=== PATIENT | female | born 1965 | race Caucasian/White ===

== ENCOUNTER → 2017-10-02 10:30 | Outpatient (CLI) | payer BC, SELFPAY ==
[2017-10-02 12:21] LABS: Absolute Lymphocyte Count 1.49 X10^3/ul (0.83-4.51); Absolute Neutrophil Count 3.5 X10^3/uL (2.0-7.7); Basophil# 0.02 X10^3/uL; Basophil% 0.3 % (0-1); Eosinophils% 1.7 % (0-5); Hematocrit 37.4 % (37-47); Hemoglobin 11.8 g/dl (12.0-15.0); Lymphocyte # 1.49 X10^3/ul (4.0); Lymphocyte % 24.8 % (19-41); Mean Corp Hgb Conc 31.6 g/gl (32-36); Mean Corpuscular Hgb 25.7 pg (27.0-32.0); Mean Corpuscular Volume 81.3 fL (81-99); Mean Platelet Vol. 10.4 fl (6.2-12.0); Monocyte# 0.88 X10^3/uL; Monocyte% 14.6 % (0-10); Neutrophil # 3.51 X10^3/uL (2.7-7.7); Neutrophil % 58.4 % (47-70); Platelet Count 275 K/mm3 (150-450); RBC Distribution Width CV 14.7 % (11.6-14.6); RBC Distribution Width SD 43.5 fl (35.1-43.9)
[2017-10-02 12:35] LABS: AST(SGOT) 18 U/L (15-37); Alanine Aminotransfer ALT/SGPT 21 U/L (13-56); Alkaline Phosphatase 59 U/L (45-117); Anion Gap 5 (5-15); BUN 10 mg/dL (7-18); BUN/Creat Ratio 13.4 RATIO (10-20); Calcium,Total 8.9 mg/dL (8.5-10.1); Chloride 104 mmol/L (98-107); Creatinine, Serum 0.74 mg/dL (0.55-1.02); EST Glomerular Filtration Rate 88 mL/min (>60); Est Glom Filt Rate - Afr Amer 106 mL/min (>60); Globulin 3.9 g/dL (2.2-4.2); Glucose 89 mg/dL (74-106); Iron 21 ug/dL (50-170); POSITIVE COUNT NO; POSITIVE DIFFERENTIAL NO; POSITIVE MORPHOLOGY NO; Potassium 4.1 mmol/L (3.5-5.1); Protein, Total 7.9 g/dL (6.4-8.2); Sodium Level 138 mmol/L (136-145)
[2017-10-03 08:20] LABS: Vitamin B12 933 pg/mL (211-911); Vitamin D,25 Hydroxy 24.2 ng/mL (29.95-100.01)
== END ==
PROVIDERS: Family Provider Family Medicine; PCP Family Medicine; Visit Provider Urology
DX: N92.0 Excessive and frequent menstruation with regular cycle (principal); I49.9 Cardiac arrhythmia, unspecified
CPT/HCPCS: 36415; 80053; 82306; 82607; 83540; 85025

== ENCOUNTER → 2017-11-11 10:08 | Outpatient (CLI) | payer BC, SELFPAY ==
[2017-11-11 12:11] LABS: Absolute Lymphocyte Count 1.24 X10^3/ul (0.83-4.51); Absolute Neutrophil Count 2.3 X10^3/uL (2.0-7.7); Basophil# 0.01 X10^3/uL; Basophil% 0.2 % (0-1); Eosinophil# 0.12 X10^3/uL; Eosinophils% 2.8 % (0-5); Hematocrit 41.3 % (37-47); Hemoglobin 12.7 g/dl (12.0-15.0); Lymphocyte # 1.24 X10^3/ul (4.0); Lymphocyte % 28.9 % (19-41); Mean Corp Hgb Conc 30.8 g/gl (32-36); Mean Corpuscular Hgb 26.6 pg (27.0-32.0); Mean Corpuscular Volume 86.6 fL (81-99); Mean Platelet Vol. 10.2 fl (6.2-12.0); Neutrophil # 2.32 X10^3/uL (2.7-7.7); Neutrophil % 54.1 % (47-70); POSITIVE COUNT NO; POSITIVE DIFFERENTIAL NO; POSITIVE MORPHOLOGY NO; Platelet Count 224 K/mm3 (150-450); RBC Distribution Width CV 18.6 % (11.6-14.6); RBC Distribution Width SD 59.2 fl (35.1-43.9); Red Blood Count 4.77 M/mm3 (4.2-5.4); White Blood Count 4.3 K/mm3 (4.4-11.0)
[2017-11-11 12:31] LABS: Cholesterol 176 mg/dL (200); High Density Lipoprotein 60 mg/dL; Triglycerides 94 mg/dL; Very Low Density Lipoprotein 19 mg/dL (5-40)
== END ==
PROVIDERS: Family Provider Family Medicine; PCP Family Medicine; Visit Provider Family Medicine
DX: Z00.00 Encounter for general adult medical examination without abnormal findings (principal); D50.9 Iron deficiency anemia, unspecified
CPT/HCPCS: 36415; 80061; 85025

== ENCOUNTER → 2017-11-12 13:50 | Outpatient (CLI) | payer BC, SELFPAY | PROVIDERS: Family Provider Family Medicine; PCP Family Medicine; Visit Provider Family Medicine | DX: Z12.31 Encounter for screening mammogram for malignant neoplasm of breast (principal) | CPT/HCPCS: 77063; 77067 ==

== ENCOUNTER → 2018-06-22 | Outpatient (CLI) | payer BC, SELFPAY ==
--- NOTE | 2018-06-22 15:42 | CT_ITS ---
STUDY: CT ABDOMEN AND PELVIS WITH CONTRAST REASON FOR EXAM: Female, 52 years old. Lower abdominal pain RADIATION DOSAGE (If Supplied By Facility): CTDIvol = ( 10.93 ) mGy, DLP = ( 564.59 ) mGycm TECHNIQUE: Transaxial images were obtained from the dome of the diaphragm to the symphysis pubis without oral contrast. 100 IV/Oral Isovue 300 was administered. Sagittal and coronal images were reconstructed. Individualized dose optimization techniques were used for this CT. COMPARISON: None. FINDINGS: The visualized lung bases are unremarkable. The visualized portions of the heart are within normal limits. Normal liver. Normal gallbladder and extrahepatic biliary system. Normal spleen. Normal pancreas. Normal bilateral adrenal glands. There is no evidence for right renal obstruction however there is a parapelvic cyst noted. Normal left kidney. Normal visualized stomach. Normal small intestine. There are diverticular changes in the distal descending and sigmoid colon with focal segmental thickening of the bowel wall and stranding in the fat consistent with acute diverticulitis. There is no peridiverticular abscess. No evidence for acute appendicitis. Normal abdominal aorta. Normal inferior vena cava. Normal retroperitoneum. Normal urinary bladder. There are small bilateral ovarian cysts. There is a small amount of fluid within the cul-de-sac. Normal abdominal wall. Normal osseous structures. CT/Abdomen/Pelvis WITH Contrast IMPRESSION: Findings most consistent with acute diverticulitis of the distal descending colon with without evidence for peridiverticular abscess. Small bilateral ovarian cysts and a small amount of free fluid in cul-de-sac. Electronically Signed: Rojas Mcelroy MD at 18:29 EDT , Service support ,
== END | disposition home or self-care (01) ==
LOC: CT 15:41
PROVIDERS: Family Provider Family Medicine; PCP Family Medicine; Referring Provider Family Medicine; Visit Provider Family Medicine
DX: R10.9 Unspecified abdominal pain (principal)
CPT/HCPCS: 74177; Q9967

== ENCOUNTER → 2018-11-18 | Outpatient (CLI) | payer OTHER, SELFPAY ==
--- NOTE | 2018-11-18 12:04 | BI_ITS ---
MAMMOGRAPHY - BILATERAL SCREENING REASON FOR EXAM: Female, 53 years old. Routine annual screening examination. PERTINENT HISTORY: Mother with breast cancer. TECHNIQUE: Digital bilateral breast alex (3D mammographic acquisition) in the CC and MLO projections. 2-D mediolateral oblique (MLO) and craniocaudad (CC) views of both breasts were obtained. CAD: Full Field Digital Mammography with Computer Added Detection was performed. COMPARISON: Comparison is made with prior study dated November 12, 2017 and November 14, 2015. FINDINGS: Breast Composition: The breasts are heterogeneously dense, which may obscure small masses. There are no dominant masses or suspicious calcifications. Stable small bilateral axillary lymph nodes. No other significant abnormalities are identified. There has been no significant change since the prior study. BI/SCREEN MAMM (CAD) W/ALEX BILAT IMPRESSION: Stable bilateral screening mammogram. Yearly follow-up mammogram recommended. (A) ASSESSMENT CATEGORY: BIRADS Category 2: Benign. A letter regarding these results will be sent to the patient by the facility within 30 days. Approximately 10% of breast cancers are not detected by mammography. A normal mammogram should not delay biopsy of a clinically suspicious abnormality. [id number] Electronically Signed: Arya Laura, at 13:27 EDT , Service support ,
== END | disposition home or self-care (01) ==
LOC: OPBI 12:02
PROVIDERS: Family Provider Family Medicine; PCP Family Medicine; Referring Provider Family Medicine; Visit Provider Obstetrics & Gynecology
DX: Z12.31 Encounter for screening mammogram for malignant neoplasm of breast (principal)
CPT/HCPCS: 77063; 77067

== ENCOUNTER → 2018-12-07 | Outpatient (CLI) | payer OTHER, SELFPAY ==
[2018-12-07 13:58] LABS: Absolute Lymphocyte Count 1.18 X10^3/uL (0.83-4.51); Absolute Neutrophil Count 4.2 X10^3/uL (2.0-7.7); Basophil# 0.02 X10^3/uL; Basophil% 0.3 % (0-1); Eosinophil# 0.08 X10^3/uL; Eosinophils% 1.3 % (0-5); Hematocrit 42.2 % (37-47); Hemoglobin 13.6 g/dL (12.0-15.0); Lymphocyte # 1.18 X10^3/ul (4.0); Lymphocyte % 19.6 % (19-41); Mean Corp Hgb Conc 32.2 g/dL (32-36); Mean Corpuscular Hgb 28.5 pg (27.0-32.0); Mean Corpuscular Volume 88.5 fL (81-99); Mean Platelet Vol. 10.7 fl (6.2-12.0); Monocyte# 0.56 X10^3/uL; Monocyte% 9.3 % (0-10); NRBC Flagged by Analyzer 0 % (0-5); Neutrophil # 4.17 X10^3/uL (2.7-7.7); Neutrophil % 69.2 % (47-70); Platelet Count 276 K/mm3 (150-450); RBC Distribution Width CV 13.3 % (11.6-14.6); RBC Distribution Width SD 43.2 fl (35.1-43.9); Red Blood Count 4.77 M/mm3 (4.2-5.4)
[2018-12-07 14:17] LABS: Anion Gap 9 (5-15); BUN 10 mg/dL (7-18); BUN/Creat Ratio 13.8 RATIO (10-20); Calcium,Total 8.8 mg/dL (8.5-10.1); Chloride 105 mmol/L (98-107); Creatinine, Serum 0.72 mg/dL (0.55-1.02); EST Glomerular Filtration Rate 90 mL/min (>60); Est Glom Filt Rate - Afr Amer 109 mL/min (>60); Glucose 92 mg/dL (74-106); Potassium 3.7 mmol/L (3.5-5.1); Sodium Level 140 mmol/L (136-145)
== END | disposition home or self-care (01) ==
LOC: MFPLAB 12:36
PROVIDERS: Family Provider Family Medicine; PCP Family Medicine; Visit Provider Family Medicine
DX: R07.9 Chest pain, unspecified (principal)
CPT/HCPCS: 36415; 80048; 85025

== ENCOUNTER 2018-12-09 13:40 | Observation (INO) | payer OTHER, SELFPAY ==
[2018-12-09] VITALS (11 sets, daily range): BP systolic 127–157; BP diastolic 66–89; PULSE 77–108; RESP 12–16; TEMP 36.6–37.1; O2SAT 97–100; BMI 23.6; BMI 23.0
--- NOTE | 2018-12-09 13:53 | EKG12_ITS ---
Test Reason : CP Blood Pressure : / mmHG Vent. Rate : 109 BPM Atrial Rate : 109 BPM P-R Int : 166 ms QRS Dur : 082 ms QT Int : 344 ms P-R-T Axes : 072 055 061 degrees QTc Int : 463 ms Sinus tachycardia Possible Left atrial enlargement Septal infarct , age undetermined Abnormal ECG Confirmed by ANTONY NG, DAVID ([id number]), commercial production editor DREA MOORE ([id number]) on 12/11/2018 10:23:18 A M Referred By: Gera Botello Confirmed By:IRVIN HARDY MD
--- NOTE | 2018-12-09 13:53 | RAD_ITS ---
STUDY: X-RAY CHEST REASON FOR EXAM: Female, 53 years old. Chest pressure. TECHNIQUE: Single AP portable view of the chest. COMPARISON: None. FINDINGS: EKG electrodes are seen. Hyperinflation. The lungs are clear. There is no demonstrated pleural abnormality. Normal size heart. Normal mediastinum and petros. Normal visualized pulmonary arteries. Normal visualized aortic arch and descending thoracic aorta. Normal visualized thoracic spine. Normal visualized ribs, clavicles, and shoulders. There is no demonstrated abnormality of the visualized soft tissue structures of the upper abdomen. RAD/Chest 1 View (Portable) IMPRESSION: Hyperinflation. Electronically Signed: Arya Laura, at 15:04 EDT , Service support ,
--- NOTE | 2018-12-09 13:55 | ED.VIS.GEN ---
History of Present Illness Chief Complaint: Chest Pain Informant: Patient Onset: Weeks Timing: Waxes and wanes Current Severity: Moderate Maximum Severity: Moderate Narrative: Patient presents with a several week history of chest heaviness and pressure there is been waxing and waning. She was seen by her primary care physician 2 days ago. EKG in the office was reportedly unremarkable and her lab work looks okay so they scheduled a stress test for next week. Patient states the pressure in her chest seem to be worse today. She denies personal history of cardiac disease. 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 If this related to her current symptoms. Past Medical History - Allergies and Home Meds Allergies/Adverse Reactions: Allergies wheat Allergy (Verified 12/09/18 13:43) [place] Primary Care Physician: Leti Seo MD [Primary Care Provider] - Prior records reviewed: Yes Past Medical History: - - Reviewed Lives: Spouse/ Significant Other Smoking Status: Never smoker Review of Systems General: Denies: Chills, Fever Eyes: Denies: Visual changes - bilaterally ENT: Denies: Bilateral ear pain Cardiovascular: Reports: Chest pain, Heart racing Respiratory: Reports: Dyspnea. Denies: Cough, Sputum Gastrointestinal: Denies: Abdominal pain, Nausea, Vomiting, Diarrhea Genitourinary: Denies: Dysuria Musculoskeletal: Denies: Back pain, Swelling, Extremity Pain Skin: Denies: Rash Neurological: Denies: Headache Psych: Reports: Anxiety Hematologic: Denies: Easy bruising Allergy: Denies: Uticaria Physical Exam Vital Signs/Narrative: Vital Signs Temp Pulse Resp BP Pulse Ox 12/09/18 13:41 97.8 F 108 H 12 157/89 H 100 Inital Vital Signs reviewed: Yes General: Well nourished, Well developed ENT: Moist mucous membranes Neck: Supple Cardiovascular: Tachycardia Respiratory: No distress, CTA bilaterally Abdomen: Soft, Nontender Extremities: Nontender Skin: Normal color Neurological: Alert, Oriented x3 Psychological: - - Anxious Diagnostic/Tx/Re-eval Chest X-Ray - ED: 1 View, Read by ED Physician, - - Hyperinflation with no focal infiltrate. 12/09/18 13:53 Chest 1 View (Portable) [RAD] Stat Laboratory Results 12/09/18 12/09/18 12/09/18 13:45 13:45 13:45 WBC 8.6 RBC 5.13 Hgb 14.7 Hct 45.6 MCV 88.9 MCH 28.7 MCHC 32.2 RDW Std Deviation 42.7 RDW Coeff of Maryellen 13.2 Plt Count 313 MPV 10.5 Immature Gran % (Auto) 0.200 Neut % (Auto) 65.3 Lymph % (Auto) 23.1 [place] % (Auto) 9.3 Eos % (Auto) 1.5 Baso % (Auto) 0.6 Absolute Neuts (auto) 5.6 Absolute Lymphs (auto) 1.99 Nucleated RBC % 0 D-Dimer Quant (PE/DVT) 0.43 Sodium 137 Potassium 3.2 L Chloride 102 Carbon Dioxide 26.0 Anion Gap 9 BUN 10 Creatinine 0.83 Estim Creat Clear Calc 80.89 Est GFR (MDRD) Af Amer 93 Est GFR (MDRD) Non-Af 77 BUN/Creatinine Ratio 12.0 Glucose 97 Calcium 9.4 Troponin I < 0.015 TSH 1.84 - EKG Initial EKG Interpretation: Sinus Tachycardia - Sinus tach at 109. No acute ST change. - Medical Decision Making She was initially given aspirin, morphine, and Zofran. She remained very anxious and asked for something to help with her anxiety. She was given 0.5 mg of IV Ativan. Her potassium returned slightly low she was given oral potassium replacement. I will speak with hospitalist regarding admission overnight and obtaining her stress test in the morning. ED Disposition - Plan for ED Patient: Disposition: Acute Care Hospital [facility] Diagnosis: Chest pain Referrals: Leti Seo MD [Primary Care Provider] -
[2018-12-09] MEDS: Aspirin 81 MG TAB.CHEW 324 MG PO (14:04)
[2018-12-09] MEDS: 0.9% Normal Saline 1,000 ML 150 ML IV (14:05)
[2018-12-09] MEDS: Ondansetron 4 MG/2 ML Vial IV (14:06)
[2018-12-09] MEDS: Morphine 4 MG/ML Syringe IV (14:06)
[2018-12-09 14:08] LABS: Absolute Lymphocyte Count 1.99 X10^3/uL (0.83-4.51); Absolute Neutrophil Count 5.6 X10^3/uL (2.0-7.7); Basophil# 0.05 X10^3/uL; Basophil% 0.6 % (0-1); Eosinophil# 0.13 X10^3/uL; Eosinophils% 1.5 % (0-5); Hematocrit 45.6 % (37-47); Hemoglobin 14.7 g/dL (12.0-15.0); Lymphocyte # 1.99 X10^3/ul (4.0); Lymphocyte % 23.1 % (19-41); Mean Corp Hgb Conc 32.2 g/dL (32-36); Mean Corpuscular Hgb 28.7 pg (27.0-32.0); Mean Corpuscular Volume 88.9 fL (81-99); Mean Platelet Vol. 10.5 fl (6.2-12.0); Monocyte% 9.3 % (0-10); NRBC Flagged by Analyzer 0 % (0-5); Neutrophil # 5.64 X10^3/uL (2.7-7.7); Neutrophil % 65.3 % (47-70); Platelet Count 313 K/mm3 (150-450); RBC Distribution Width CV 13.2 % (11.6-14.6); RBC Distribution Width SD 42.7 fl (35.1-43.9); Red Blood Count 5.13 M/mm3 (4.2-5.4); White Blood Count 8.6 K/mm3 (4.4-11.0)
[2018-12-09 14:16] LABS: D-Dimer Quantitative (DVT/PE) 0.43 FEU/ug/m (0.27-0.49)
[2018-12-09] MEDS: LORazepam 2 MG/ML Syringe 0.5 MG IV (14:23)
[2018-12-09 14:28] LABS: Anion Gap 9 (5-15); BUN 10 mg/dL (7-18); Calcium,Total 9.4 mg/dL (8.5-10.1); Chloride 102 mmol/L (98-107); Creatinine, Serum 0.83 mg/dL (0.55-1.02); EST Glomerular Filtration Rate 77 mL/min (>60); Est Glom Filt Rate - Afr Amer 93 mL/min (>60); Estimated Creatinine Clearance 80.89 ml/min; Glucose 97 mg/dL (74-106); Potassium 3.2 mmol/L (3.5-5.1); Sodium Level 137 mmol/L (136-145); Thyroid Stim Hormone (TSH) 1.84 uIU/mL (0.358-3.74)
--- NOTE | 2018-12-09 15:30 | PCM.HP.STD ---
Problem List (1) Menorrhagia Status: Chronic (2) Chest pain Status: Acute History of Present Illness Date of Admission: 12/09/18 Chief Complaint: Chest pain The patient is a 53 year old F with no significant medical problem except menorrhagia for which she was prescribed tranexamic acid about 3 weeks ago came to ED with waxing and waning chest pains since then, 3 weeks. Patient feels chest pain all the time, from right side to left side anteriorly sharp in quality with radiation pain to throat, like gripping her throat. She denies radiation to back or arms, tingling or numbness. No nausea or vomiting, diarrhea or constipation or fever or flulike symptoms. She relates her symptoms to tranexamic acid. She looks more anxious and worried and was given Ativan 0.5 mg along with aspirin daily. Basic blood work shows mild hypokalemia, K3.2. EKG sinus tachycardia at 109 bpm. First troponin negative. Past Medical History Past Medical History (Chronic Problems): Chronic Problems Menorrhagia (Chronic) Allergies wheat Allergy (Verified 12/09/18 13:43) Hives Home Medications: Ambulatory Orders Medication Instructions Recorded NK 12/09/18 Lives: Spouse/ Significant Other Smoking Status: Never smoker Tobacco Use: Non-smoker - *Family History Paternal History Items: Heart Disease - Had a pacemaker and he . Review of Systems Constitutional: Denies: Chills, Fever, Weight Change HEENT: Denies: Head Aches, Sinus Congestion, Sinus Drainage Cardiovascular: Reports: Chest Pain. Denies: Palpitations Respiratory: Denies: Cough, Shortness of breath at rest, Sputum production Gastrointestinal: Denies: Abdominal Pain, Nausea, Vomiting Genitourinary: Denies: Dysuria Musculoskeletal: Denies: Joint Pain, Joint Tenderness Skin: Denies: Rash, Wounds Neurological: Denies: Numbness, Tingling, Focal weakness Psychiatric: Reports: Anxiety. Denies: Depression, Homicidal Ideations, Suicidal Ideations Hematologic/ Lymphatic: Denies: Easy Bruising, Easy Bleeding VTE Information - Inpt Only VTE Present on Admission: No VTE Mechan Device Prophylaxis: None VTE Pharm Prophylaxis ordered?: Yes Patient Problems: Active and Suspected Problems Chest pain (Acute) - Physical Exam General: Alert, Oriented x3, Cooperative HEENT: Atraumatic, PERRLA, EOMI, Normocephalic Neck: Supple, No JVD, Negative Carotid Bruits Lungs: Clear to auscultation, Normal air movement, No rhonchi, No wheeze, No rales Cardiovascular: Regular rate, Regular Rhythm, Normal S1, Normal S2, No murmurs Abdomen: Bowel Sounds Present, Soft, Non Tender, Non-Distended Extremities: No edema, Capillary Refill Less than 3 Seconds Skin: No rashes, No breakdown Musculoskeletal: No Tenderness to Palpation of Joints or Extremities Neurological: Cranial nerves II-XII grossly intact, Deep Tendon Reflexes 2+/4 and Symmetrical, Neuro grossly intact, Motor Exam 5/5 strength throughout Psych/Mental Status: Normal Affect, Appropriate Vital Signs Temp Pulse Resp BP Pulse Ox 97.8 F 87 16 137/83 H 99 12/09/18 13:41 12/09/18 15:17 12/09/18 15:17 12/09/18 15:17 12/09/18 15:17 Oxygen Delivery Method Room Air Weight: 154 lb 15.759 oz Body Mass Index (BMI) 23.6 Laboratory Tests Past 24 Hrs 12/09/18 12/09/18 12/09/18 13:45 13:45 13:45 WBC 8.6 RBC 5.13 Hgb 14.7 Hct 45.6 MCV 88.9 MCH 28.7 MCHC 32.2 RDW Std Deviation 42.7 RDW Coeff of Maryellen 13.2 Plt Count 313 MPV 10.5 Immature Gran % (Auto) 0.200 Neut % (Auto) 65.3 Lymph % (Auto) 23.1 [place] % (Auto) 9.3 Eos % (Auto) 1.5 Baso % (Auto) 0.6 Absolute Neuts (auto) 5.6 Absolute Lymphs (auto) 1.99 Nucleated RBC % 0 D-Dimer Quant (PE/DVT) 0.43 Sodium 137 Potassium 3.2 L Chloride 102 Carbon Dioxide 26.0 Anion Gap 9 BUN 10 Creatinine 0.83 Estim Creat Clear Calc 80.89 Est GFR (MDRD) Af Amer 93 Est GFR (MDRD) Non-Af 77 BUN/Creatinine Ratio 12.0 Glucose 97 Calcium 9.4 Troponin I < 0.015 TSH 1.84 Assessment/Plan All Active Problems Chest pain (Acute) The patient is a 53 year old F with no significant medical problem except menorrhagia for which she was prescribed tranexamic acid about 3 weeks ago came to ED with waxing and waning chest pains since then, 3 weeks. Basic blood work shows mild hypokalemia, K3.2. EKG sinus tachycardia at 109 bpm. First troponin negative. 1. Chest pain, atypical for acute coronary syndrome: It seems most likely anxiety/panic attack. Patient is being admitted to PCU. Serial troponin enzymes and treadmill nuclear stress test tomorrow morning if troponins negative. Patient stress test was scheduled for next week by PCP. Fasting profile tomorrow a.m. Patient had echo last year by Dr. Osvaldo Busby. We will try to get copy from [facility]. 2. Mild hypokalemia: K is replaced. Recheck potassium and magnesium tomorrow. 3. Mild anxiety: Started on Xanax 0.5 mg 3 times daily as needed. TSH is normal. 4. Recent history of menorrhagia: This has been resolved after she is took tranexamic acid. 5. DVT prophylaxis: On Lovenox 40 mg subcu daily Code Visit OBSV E&M: 61763 Initial observation care L3
--- NOTE | 2018-12-09 16:11 | EKG12_ITS ---
Test Reason : Blood Pressure : / mmHG Vent. Rate : 083 BPM Atrial Rate : 083 BPM P-R Int : 164 ms QRS Dur : 068 ms QT Int : 366 ms P-R-T Axes : 052 050 062 degrees QTc Int : 430 ms Normal sinus rhythm Septal infarct , age undetermined Abnormal ECG When compared with ECG of 09-DEC-2018 13:43, MANUAL COMPARISON REQUIRED, DATA IS UNCONFIRMED Confirmed by RENEE ESQUIVEL ([id number]), makeup editor KEIRA DARBY ([id number]) on 12/22/2018 1:27:53 PM Referred By: Gera Botello Confirmed By:RENEE ESQUIVEL
[2018-12-09] MEDS: Lactated Ringers 1,000 ML 100 ML IV (17:42)
[2018-12-09] MEDS: Enoxaparin 40 MG/0.4 ML Syringe SC (17:42)
[2018-12-09] MEDS: Morphine 2 MG/ML Syringe IV (21:14)
[2018-12-09] MEDS: Atorvastatin Calcium 40 MG Tablet PO (21:14)
[2018-12-10 03:10] VITALS: BP 114/66; PULSE 68; RESP 16; TEMP 36.5; O2SAT 100
[2018-12-10 03:40] VITALS: PULSE 62
[2018-12-10] MEDS: Aspirin E.C. 81 MG Tablet PO (05:18)
[2018-12-10 05:20] VITALS: BP 117/60; PULSE 70; RESP 18; TEMP 36.8; O2SAT 99
--- NOTE | 2018-12-10 05:55 | EKG12_ITS ---
Test Reason : AM EKG Blood Pressure : / mmHG Vent. Rate : 069 BPM Atrial Rate : 069 BPM P-R Int : 182 ms QRS Dur : 078 ms QT Int : 398 ms P-R-T Axes : 024 048 062 degrees QTc Int : 426 ms Normal sinus rhythm Septal infarct , age undetermined Abnormal ECG When compared with ECG of 09-DEC-2018 16:28, MANUAL COMPARISON REQUIRED, DATA IS UNCONFIRMED Confirmed by RENEE ESQUIVEL ([id number]), editorial cartoonist KEIRA DARBY ([id number]) on 12/22/2018 1:30:24 PM Referred By: Gera Botello Confirmed By:RENEE ESQUIVEL
[2018-12-10] MEDS: Morphine 2 MG/ML Syringe IV (06:05)
[2018-12-10 06:09] LABS: Anion Gap 4 (5-15); BUN 7 mg/dL (7-18); BUN/Creat Ratio 10.8 RATIO (10-20); Calcium,Total 8.6 mg/dL (8.5-10.1); Chloride 108 mmol/L (98-107); Cholesterol 147 mg/dL (200); Creatinine, Serum 0.65 mg/dL (0.55-1.02); EST Glomerular Filtration Rate 102 mL/min (>60); Est Glom Filt Rate - Afr Amer 124 mL/min (>60); Estimated Creatinine Clearance 103.29 ml/min; Glucose 101 mg/dL (74-106); High Density Lipoprotein 45 mg/dL; Magnesium 1.9 mg/dL (1.6-2.6); Potassium 4.1 mmol/L (3.5-5.1); Sodium Level 141 mmol/L (136-145); Triglycerides 69 mg/dL; Very Low Density Lipoprotein 14 mg/dL (5-40)
[2018-12-10 06:26] VITALS: PULSE 76
[2018-12-10 08:55] VITALS: BP 120/77; PULSE 98; RESP 18; TEMP 37.1; O2SAT 100
--- NOTE | 2018-12-10 09:43 | CASEMGMT ---
SW let pt know that her POA is not on file here, asked her to bring it in as able. Pt states understanding. Pt does not have a living will. TANNER Gruber
--- NOTE | 2018-12-10 10:16 | STRESSREP_ITS ---
Stress Test Report Date: 12/10/2018 Procedure: Exercise tolerance test/imaging study Indications: Chest pain Consent: Per the patient Procedure: The patient exercised on a Leo protocol for 9 minutes achieving a peak heart rate of 176 bpm (104 % predicted maximal heart rate) with a peak blood pressure 164/70 mmHg and a peak MET capacity of 10.1 METs. The baseline ECG demonstrated normal sinus rhythm. The peak exercise ECG demonstrated sinus tachycardia with no significant ischemic ST-T changes. EKG during recovery revealed [no significant ischemic changes] [There were no significant cardiac dysrhythmias pretest, during exercise, or recovery]. The functional capacity was considered above average for age. Patient had some chest pressure prior to starting exercise and this did not get worse with exercise. The examination was discontinued secondary to shortness of breath. Impression: 1. Technically adequate (percent predicted maximal heart rate greater than 85%) exercise tolerance test 2. Stress test is negative for exercise-induced EKG changes of ischemia 3. The test test is negative for exercise-induced chest pain. Patient had chest pressure at baseline which did not get worse with exercise 4. Functional capacity is above average for age 5. Nuclear images pending Myocardial perfusion imaging study: Technique: The patient was injected with 11.5 mCi of technetium 99m Cardiolite and subsequently rest SPECT Cardiolite nuclear imaging was obtained in the horizontal long, vertical long, and short axis views. The patient exercised on a Leo protocol. Please see above for details. The patient was injected with 33.2 mCi of technetium 99m Cardiolite and subsequently stress SPECT Cardiolite nuclear imaging was obtained in the horizontal long, vertical long, and short axis views. A gated Cardiolite study at peak stress was obtained. Interpretation: Rest and stress SPECT Cardiolite nuclear imaging status post realignment, normalization, and attenuation correction, demonstrates overall normal myocardial radioisotope uptake. The gated Cardiolite study demonstrates no significant regional wall motion abnormalities. The reported LVEF is greater than 70 %. Impression: 1. There is no evidence of significant ischemia or infarction. 2. The gated Cardiolite study reports an LVEF of greater than 70 %. This note was generated with [employer] software. It may contain incorrect words, spelling, and punctuation that were not noted in checking the note before signing.
--- NOTE | 2018-12-10 11:41 | DCINST_ITS ---
- Discharge Diagnoses Current Active Problems: Current Active and Chronic Problems Chest pain (Acute) Menorrhagia (Chronic) You will use the following diet at home:: No restrictions Your food should be the consistency of: Regular Your liquids should be the consistency of: Regular/Thin Discharge Activity: Return to Normal Activity Allergies/Adverse Reactions: Allergies wheat Allergy (Verified 12/09/18 13:43) Hives Medications to take at Discharge Ibuprofen 600 mg PO Q6H PRN PRN #30 tab 12/10/18 The following prescriptions were given: Ibuprofen 600 mg PO Q6H PRN PRN #30 tab PRN Reason: Pain Score 1-10/10 Transmission Status: Pending to [facility]30 Primary Care Physician: Leti Seo MD [Primary Care Provider] - Please follow up with your Primary Care Physician in: within 2 weeks Test Results: Test results from this visit will be discussed in further detail at your follow- up appointment, if applicable.
--- NOTE | 2018-12-11 08:42 | DS.PCM_ITS ---
Discharge Date and Diagnosis Date of Admission: 12/09/18 Date of Discharge: 12/10/18 - Primary Discharge Diagnosis #1 musculoskeletal chest pain #2 hypokalemia - Secondary Discharge Diagnosis Chronic Problems Menorrhagia (Chronic) Hospital Course and Treatment Operations: None Procedures: Nuclear stress test Summary of Care Provided: The patient is a 53 year old F was seen in the emergency room at [facility] with complaints of upper chest heaviness and pressure off and on times several weeks. She had been seen by her primary physician 2 days ago, and EKG had been done at that time according to the patient and it was unremarkable. A stress test was scheduled as an outpatient for the patient, however she came to the emergency room for evaluation of the ongoing symptoms. Work-up in the emergency room showed a slightly low potassium, patient's chest x-ray was unremarkable, patient's troponin was normal, her EKG was unremarkable. Patient was placed in observation status on PCU, cardiac enzymes are cycled and these remain normal. Patient's potassium was replaced orally, repeat potassium was normal. Patient underwent a exercise nuclear stress test which was negative for reversible ischemia. On 12/10/2018, patient was seen and examined: On examination she appeared in good health and spirits. Vital signs as documented. Skin warm and dry and without overt rashes. Neck without JVD. Lungs clear. Heart exam notable for regular rhythm, normal sounds and absence of murmurs, rubs or gallops. Abdomen unremarkable and without evidence of organomegaly, masses, or abdominal aortic enlargement. Extremities nonedematous. Neuro: Cranial nerves II through XII are grossly intact, no focal motor deficits were noted, sensation to light touch and pinprick is intact. Psych: Patient is alert and oriented x3, she does not appear anxious or depressed On 12/10/2018, I had a long discussion with the patient and her who is in the room at the time of my examination, I told the patient I could not be certain what was causing her upper chest discomfort but I thought it was likely that it was musculoskeletal in nature. I told her that she needed to follow-up with her PCP and if further tests were needed I recommended an echocardiogram and a CT of her chest. I asked the patient if she wanted any of these tests whi reji she was in the hospital and she declined at this time to have the test done. Patient was discharged in stable condition on 12/10/2018 - Physical Exam Vital Signs Temp Pulse Resp BP Pulse Ox 98.8 F 98 18 120/77 100 12/10/18 08:55 12/10/18 08:55 12/10/18 08:55 12/10/18 08:55 12/10/18 08:55 Oxygen Delivery Method Room Air Weight: 68.629 kg Body Mass Index (BMI) 23.0 Intake and Output for Last 24 Hours 12/09/18 12/10/18 12/11/18 23:59 23:59 23:59 Intake Total 240 / 240 1060 / 1060 Balance 240 / 240 1060 / 1060 Discharge Activity: Return to Normal Activity Home Medications: Medications to take at Discharge Ibuprofen 600 mg PO Q6H PRN PRN #30 tab 12/10/18 Following Prescrptions Were Given to Patient: Ibuprofen 600 mg PO Q6H PRN PRN #30 tab PRN Reason: Pain Score 1-10/10 Transmission Status: Received by [facility] #30 Primary Care Physician: Leti Seo MD [Primary Care Provider] - Please follow up with your Primary Care Physician in: within 2 weeks Please Follow Up With: Leti Seo MD Disposition: Home Minutes spent on discharge:: 31 Patient Condition:: Stable Medical Necessity - Tobacco Use Smoking Status: Never smoker Tobacco Use: Non-smoker Meaningful Use Info Meaningful Use Diagnoses (Choose all that apply): None applicable Code Visit OBSV E&M: 30286 Observation care discharge
== END 2018-12-10 11:42 | disposition home or self-care (01) ==
LOC: ED 15:03 → PCU 12-10 07:23
PROVIDERS: Admitting Provider Internal Medicine; Emergency Provider Emergency Medicine; Family Provider Family Medicine; PCP Family Medicine; Referring Provider Internal Medicine; Visit Provider Internal Medicine
DX: R07.89 Other chest pain (principal); E87.6 Hypokalemia; R00.0 Tachycardia, unspecified; N92.0 Excessive and frequent menstruation with regular cycle
CPT/HCPCS: 36415; 71045; 78452; 80048; 80061; 83735; 84443; 84484; 85025; 85379; 93005; 93017; 96361; 96374; 96375; 96376; 99218; 99285; A9500; J7030; J7120; A4216; G0378; J2405

== ENCOUNTER → 2020-04-21 14:56 | Outpatient (CLI) | payer OTHER, SELFPAY ==
[2020-04-12 09:26] VITALS: BMI 23.6
--- NOTE | 2020-04-21 14:58 | BI_ITS ---
MAMMOGRAPHY - BILATERAL SCREENING REASON FOR EXAM: Female, 54 years old. Routine annual screening examination. PERTINENT HISTORY: Mother with breast cancer. TECHNIQUE: Digital bilateral breast alex (3D mammographic acquisition) in the CC and MLO projections. 2-D mediolateral oblique (MLO) and craniocaudad (CC) views of both breasts were obtained. CAD: Full Field Digital Mammography with Computer Added Detection was performed. COMPARISON: Comparison is made with prior study dated 11/18/2018 and 11/12/2017. FINDINGS: Breast Composition: The breasts are heterogeneously dense, which may obscure small masses. There are no dominant masses or suspicious calcifications. Stable benign appearing bilateral axillary lymph nodes. No other significant abnormalities are identified. There has been no significant change since the prior study. BI/SCRN MAMM (CAD)W/ALEX BILAT IMPRESSION: Stable bilateral screening mammogram. Yearly follow-up mammogram recommended. (A) ASSESSMENT CATEGORY: BIRADS Category 2: Benign. A letter regarding these results will be sent to the patient by the facility within 30 days. Approximately 10% of breast cancers are not detected by mammography. A normal mammogram should not delay biopsy of a clinically suspicious abnormality. [id number] Electronically Signed: Arya Laura MD at 15:30 EST , Service support ,
== END ==
PROVIDERS: PCP Family Medicine; Referring Provider Obstetrics & Gynecology; Visit Provider Obstetrics & Gynecology
DX: Z12.31 Encounter for screening mammogram for malignant neoplasm of breast (principal)
CPT/HCPCS: 77063; 77067

== ENCOUNTER → 2020-08-18 10:40 | Outpatient (CLI) | payer OTHER, SELFPAY ==
[2020-04-12 09:26] VITALS: BMI 23.6
--- NOTE | 2020-08-18 10:43 | RAD_ITS ---
INDICATION: PAIN IN HEEL/FOOT EXAMINATION/TECHNIQUE: X-RAY - RIGHT XR Foot Min 3 Views COMPARISON: None. FINDINGS: No acute fracture or malalignment. No blastic or lytic lesions. No degenerative changes are seen. Small dorsal heel spur. The soft tissues are unremarkable. RAD/Foot min 3 Views IMPRESSION: No acute radiographic abnormalities. Heel spur. Electronically Signed: Marvel Magallanes MD at 21:17 EDT Tel , Service support ,
== END ==
PROVIDERS: PCP Family Medicine; Referring Provider Family Medicine; Visit Provider Family Medicine
DX: M79.671 Pain in right foot (principal)
CPT/HCPCS: 73630

== ENCOUNTER → 2020-10-10 15:32 | Outpatient (CLI) | payer OTHER, SELFPAY ==
[2020-04-12 09:26] VITALS: BMI 23.6
[2020-10-10 17:46] LABS: Absolute Lymphocyte Count 1.58 X10^3/uL (0.83-4.51); Basophil# 0.02 X10^3/uL; Basophil% 0.4 % (0-1); Eosinophil# 0.16 X10^3/uL; Hematocrit 44.1 % (37-47); Hemoglobin 14.1 g/dL (12.0-15.0); Lymphocyte # 1.58 X10^3/ul (0.83-4.51); Lymphocyte % 29.6 % (19-41); Mean Corpuscular Hgb 29.2 pg (27.0-32.0); Mean Corpuscular Volume 91.3 fL (81-99); Mean Platelet Vol. 11.1 fl (6.2-12.0); Monocyte# 0.52 X10^3/uL; Monocyte% 9.8 % (0-10); NRBC Flagged by Analyzer 0 % (0-5); Neutrophil # 3.04 X10^3/uL (2.7-7.7); Platelet Count 251 K/mm3 (150-450); RBC Distribution Width CV 12.4 % (11.6-14.6); RBC Distribution Width SD 41.8 fl (35.1-43.9); Red Blood Count 4.83 M/mm3 (4.2-5.4); White Blood Count 5.3 K/mm3 (4.4-11.0)
[2020-10-10 18:03] LABS: Erythrocyte Sedimentation Rate 5 mm/hr (0-30)
[2020-10-10 18:07] LABS: Vitamin D,25 Hydroxy 49.8 ng/mL
[2020-10-10 18:12] LABS: Thyroid Stim Hormone (TSH) 1.97 uIU/mL (0.358-3.74)
== END ==
PROVIDERS: PCP Family Medicine; Referring Provider Family Medicine; Visit Provider Family Medicine
DX: E55.9 Vitamin D deficiency, unspecified (principal); M79.10 Myalgia, unspecified site; Z85.3 Personal history of malignant neoplasm of breast
CPT/HCPCS: 36415; 82306; 84443; 85025; 85652

== ENCOUNTER 2020-10-30 15:30 | Outpatient (RCR) | payer OTHER, SELFPAY ==
[2020-04-12 09:26] VITALS: BMI 23.6
--- NOTE | 2020-10-18 15:25 | HP.PTEVAL_ITS ---
Patient's Visit Information AYESHA CHOW is a 54 year old F referred to Physical Therapy by Dr. Leti Seo MD with a diagnosis of Chronic Tension GIBSON. Date of Evaluation: 10/18/20 Physical Therapist: Malinda Stevens DPT - Visit Plan Frequency: 2x /Week Duration: 3 Weeks Plan: Focus on scapular s/s- postural education- ultrasound, manual and dry needling as needed. HEP Given IE: Postural education, supine chinstretch, CT junction stretch tuck, scapular retractions, upper trap stretch, levator stretch, CT junction stretch - Subjective Patient reports that she has had GIBSON for most of her adult life. She feels they might be tension headaches. Base of the neck and come up and round and into the eyes- one sided or both. Had a headache this weekend and did chin tucks and upper trap stretching and it really helped. Has abotu 3-4 headaches a week- but it can be intermittent. Once she gets them they last between 24-48 hours. Was taking a migraine med over the counter but it started to bother her stomach and is now just taking Tylenol. Describes the pain as miserable and sharp/shooting. It use to be if she went to bed it was better but the last few weeks have been intolerable. She does not think they are migraines but does get ocular migraines maybe half a dozen a year. They have not been getting worse still pretty consistent. 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 Finds her GIBSON are worse during those days but gets them on days off. No radiating pain- but does report discomfort in her left shoulder insidious onset. Massage helps but makes the crunch over the left side of the scapula. No blurred vision, dizziness or light headedness. 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 Is active- she walks daily- does not love to lift weights. Wants to get some exercises to help. No x-rays or MRI. No previous MVA's. Sleep: disturbed- back and right sided sleeper PMHX: none Meds: none. - Objective Posture: FH, RS- can correct with tactile and verbal cues but does not maintain. Gait: no deviation noted good arm swing and trunk rotation. Palpation: significant trigger points in suboccipitals, levator, upper trap, medial border of the scapula. ROM: WFL but does report tightness with SB and rotation bilateral in cervical spine. Strength: Scap: fair minus, Cervical: 4+/5, Shoulder: 4+/5 reports pain in left. Sensation: WFL. Special Test: Spurling: negative, Distraction: negative - Balance/Special Test Scores Oswestry Neck Score: 16 - Goals Goal 1:: Patient will be I with HEP and progression Goal Time Frame: 4-6 Weeks Goal 2:: Patient will report no GIBSON for 1 week Goal Time Frame: 4-6 Weeks Goal 3:: Patient will maintain proper posture t/o tx session to demo increased scap s/s Goal Time Frame: 4-6 Weeks - Rehabilitation Potential Physical Therapy Diagnosis: Patient presents with hypomobility- she has decreased pain free ROM. scapular strength/stabilization and muscular endurance leading to poor posture and increased pain with ADL's. Rehabilitation Potential: Good - Anticipated Interventions Patient/Client Instruction: Educate patient on: Benefits of Fitness Program Therapeutic Exercise to Include: Strength training, Endurance training, Body mechanics, Postural training, Neuromotor development, Dynamic Lumbar Stabilization, Scapular Strength/Stabilization For the Purpose of:: To improve muscle performance and motor function Manual Therapy Techniques to Include: Mobilization, Functional dry needling, Soft tissue mobilization For the Purpose of:: To increase oxygenation perfusion TENS: Yes Cryotherapy (ice pack, ice massage): Yes Thermo therapy (hot pack): Yes Ultrasound (thermal/non thermal): Yes Thank you for the opportunity to evaluate your patient. For Medicare and Medicare HMO plans, please review the plan of care and approve it. It will need to be FAXED BACK to us at [phone] for Medicare purposes. For Medicare only, by signing this I certify the plan of care. Please let me know if there are questions or concerns regarding this plan of care. Physician Signature: Date:
--- NOTE | 2020-10-31 09:02 | HP.PTREVAL ---
Dr. Leti Seo MD, It has been my pleasure to treat AYESHA CHOW over the last 5 visits for Chronic Tension GIBSON. Please see the progress note below for an update on the physical therapy plan of care! Subjective: Pt. reports increased frequency of HAs since trialing DN last visit. Pt. reports having a HS every day since last visit. She stopped doing her exercises due to pain. I talked to her about slowly re integrating her exercise. Objective/Function: Pt. reports overall doing about the same. She reports having relief with her GIBSON with PA pressure to C2, but increase in symptoms with with sub occipital pressure. I gave her exercises to work on. She is going on vacation for the next two weeks. I would like her to work on the above exercises including SNAGs and PA cervical pressure as a rescue maneuver. If she is progressing or improving then come back, if not improving she is to go back to her physician. pt. consents. Plan Plan: Focus on scapular s/s- postural education- ultrasound, manual and dry needling as needed. HEP Given IE: Postural education, supine chinstretch, CT junction stretch tuck, scapular retractions, upper trap stretch, levator stretch, CT junction stretch Balance/Gait/Functional tests - Balance/Special Test Scores Oswestry Neck Score: 16 Goals Goal 1:: Patient will be I with HEP and progression Goal Time Frame: 2-4 Weeks Goal Progress: Goal Met Goal 2:: Patient will report no GIBSON for 1 week Goal Time Frame: 4-6 Weeks Goal Progress: Not Progressing Goal 3:: Patient will maintain proper posture t/o tx session to demo increased scap s/s Goal Time Frame: 4-6 Weeks Goal Progress: Progressing Anticipated Interventions Patient/Client Instruction: Educate patient on: Benefits of Fitness Program Therapeutic Exercise to Include: Strength training, Endurance training, Body mechanics, Postural training, Neuromotor development, Dynamic Lumbar Stabilization, Scapular Strength/Stabilization For the Purpose of:: To improve muscle performance and motor function Manual Therapy Techniques to Include: Mobilization, Functional dry needling, Soft tissue mobilization For the Purpose of:: To increase oxygenation perfusion TENS: Yes Cryotherapy (ice pack, ice massage): Yes Thermo therapy (hot pack): Yes Ultrasound (thermal/non thermal): Yes Please do not hesitate to contact me at [phone] by phone or if you have questions or concerns regarding this new plan of care! Sincerely, CHAPO HugoT
--- NOTE | 2021-01-15 08:13 | HP.PT.NRP ---
AYESHA CHOW was seen in my office for initial evaluation on 10/18/20. The following Plan of Care was established for this patient: Initial Frequency: 2x /Week Initial Duration: 3 Weeks Patient/Client Instruction: Educate patient on: Benefits of Fitness Program Therapeutic Exercise to Include: Strength training, Endurance training, Body mechanics, Postural training, Neuromotor development, Dynamic Lumbar Stabilization, Scapular Strength/Stabilization For the Purpose of:: To improve muscle performance and motor function Manual Therapy Techniques to Include: Mobilization, Functional dry needling, Soft tissue mobilization For the Purpose of:: To increase oxygenation perfusion TENS: Yes Cryotherapy (ice pack, ice massage): Yes Thermo therapy (hot pack): Yes Ultrasound (thermal/non thermal): Yes This patient was last seen in our office . Pertinent comments regarding their Physical therapy will appear below: Patient has not attended PT in over 4 weeks and is appropriate for discharge- return to MD for further evaluation as needed. At this point I will be discontinuing this patient from physical therapy. I would be happy to see this patient again in the future if found appropriate by the physician. Thank you! Malinda Stevens, DPT Balance/Gait/Functional tests - Balance/Special Test Scores Oswestry Neck Score: 16
== END 2020-10-30 19:00 | disposition home or self-care (01) ==
LOC: PT 15:30
PROVIDERS: PCP Family Medicine; Referring Provider Family Medicine; Visit Provider Family Medicine
DX: G44.229 Chronic tension-type headache, not intractable (principal)
CPT/HCPCS: 97110; 97140; 97162; 97164; 97530

== ENCOUNTER → 2021-01-03 11:18 | Outpatient (CLI) | payer BC, SELFPAY ==
[2021-01-03 15:31] LABS: AST(SGOT) 20 U/L (15-37); Alanine Aminotransfer ALT/SGPT 21 U/L (13-56); Albumin, Serum 4.1 g/dL (3.2-5.0); Alkaline Phosphatase 81 U/L (45-117); Anion Gap 9 (5-15); BUN 10 mg/dL (7-18); BUN/Creat Ratio 13.6 RATIO (10-20); CRP < 2.90 mg/L (0.0-3.0); Calcium,Total 9.2 mg/dL (8.5-10.1); Chloride 100 mmol/L (98-107); Creatinine, Serum 0.74 mg/dL (0.55-1.02); EST Glomerular Filtration Rate 88 mL/min (>60); Est Glom Filt Rate - Afr Amer 106 mL/min (>60); Globulin 4.1 g/dL (2.2-4.2); Glucose 89 mg/dL (74-106); Potassium 3.6 mmol/L (3.5-5.1); Protein, Total 8.2 g/dL (6.4-8.2); Rheumatoid Factor < 10.0 IU/mL (<15); Sodium Level 140 mmol/L (136-145); Thyroid Stim Hormone (TSH) 1.97 uIU/mL (0.358-3.74); Uric Acid 4.9 mg/dL (2.6-6.0)
[2021-01-03 15:41] LABS: Absolute Lymphocyte Count 1.26 X10^3/uL (0.83-4.51); Basophil# 0.02 X10^3/uL; Basophil% 0.4 % (0-1); Eosinophil# 0.12 X10^3/uL; Eosinophils% 2.4 % (0-5); Hematocrit 46.8 % (37-47); Hemoglobin 15.5 g/dL (12.0-15.0); Lymphocyte # 1.26 X10^3/ul (0.83-4.51); Lymphocyte % 25.2 % (19-41); Mean Corp Hgb Conc 33.1 g/dL (32-36); Mean Corpuscular Hgb 30.3 pg (27.0-32.0); Mean Corpuscular Volume 91.4 fL (81-99); Mean Platelet Vol. 11.1 fl (6.2-12.0); Monocyte# 0.57 X10^3/uL; Monocyte% 11.4 % (0-10); NRBC Flagged by Analyzer 0 % (0-5); Neutrophil # 3.02 X10^3/uL (2.7-7.7); Neutrophil % 60.4 % (47-70); Platelet Count 267 K/mm3 (150-450); RBC Distribution Width CV 12.3 % (11.6-14.6); RBC Distribution Width SD 41.6 fl (35.1-43.9); Red Blood Count 5.12 M/mm3 (4.2-5.4)
[2021-01-03 15:44] LABS: Erythrocyte Sedimentation Rate 3 mm/hr (0-30)
[2021-01-03 15:56] LABS: Hepatitis C Antibody Non-Reactive (Nonreactive); Vitamin B12 1063 pg/mL (211-911)
[2021-01-04 09:14] LABS: Ferritin 35 ng/mL (8-252); Iron 95 ug/dL (50-170)
[2021-01-05 13:21] LABS: ANTINUCLEAR ANTIBODIES DIRECT Positive (Negative)
[2021-01-05 15:08] LABS: PROEL- A/G Ratio 1.2 (0.7-1.7); PROEL- Albumin 4.1 g/dL (2.9-4.4); PROEL- Alpha-1 Globulin 0.2 g/dL (0.0-0.4); PROEL- Alpha-2 Globulin 0.7 g/dL (0.4-1.0); PROEL- Beta Globulin 1.2 g/dL (0.7-1.3); PROEL- Gamma Globulin 1.4 g/dL (0.4-1.8); PROEL- Globulin, Total 3.5 g/dL (2.2-3.9); PROEL- TOTAL PROTEIN 7.6 g/dL (6.0-8.5)
== END ==
PROVIDERS: PCP Family Medicine; Referring Provider Family Medicine; Visit Provider Family Medicine
DX: M79.10 Myalgia, unspecified site (principal)
CPT/HCPCS: 36415; 80053; 82607; 82728; 83540; 83735; 84165; 84443; 84550; 85025; 85652; 86038; 86140; 86431; 86803

== ENCOUNTER → 2021-01-15 09:54 | Outpatient (CLI) | payer BC, SELFPAY ==
--- NOTE | 2021-01-15 09:58 | RAD_ITS ---
History: PARESTHESIA Cervical spine 5 views: Findings: No fracture or subluxation. Straightening of the cervical lordosis noted consistent with muscle spasm. Narrowing of the C5-6 disc space. Narrowing of the C5-6 neural foramina related to uncinate joint hypertrophy. Precervical soft tissues are normal. IMPRESSION:C5-6 spondylosis with bilateral neural foraminal narrowing. at 1207 Reported and signed by: Armani Gutierrez MD Electronically Signed: Armani Gutierrez MD at 12:06 EDT Tel , Service support , RAD/Cerv Spine 4 or 5 Views
--- NOTE | 2021-01-15 10:05 | RAD_ITS ---
History: PARESTHESIA Lumbar spine 5 views: Findings: No fracture or subluxation. No significant disc space narrowing. Pedicles and posterior elements appear intact. IMPRESSION: Intact lumbar spine. at 1207 Reported and signed by: Armani Gutierrez MD Electronically Signed: Armani Gutierrez MD at 12:06 EDT Tel , Service support , RAD/L/S Spine Min 4 Views
== END ==
PROVIDERS: PCP Family Medicine; Referring Provider Family Medicine; Visit Provider Family Medicine
DX: R20.2 Paresthesia of skin (principal)
CPT/HCPCS: 72050; 72110

== ENCOUNTER → 2021-03-15 10:06 | Outpatient (CLI) | payer BC, SELFPAY ==
[2021-03-15 12:27] LABS: Erythrocyte Sedimentation Rate 8 mm/hr (0-30)
[2021-03-15 12:29] LABS: Absolute Neutrophil Count 4.6 X10^3/uL (2.0-7.7); Basophil# 0.04 X10^3/uL; Basophil% 0.6 % (0-1); Eosinophil# 0.14 X10^3/uL; Eosinophils% 2.1 % (0-5); Hematocrit 48.4 % (37-47); Hemoglobin 15.8 g/dL (12.0-15.0); Mean Corp Hgb Conc 32.6 g/dL (32-36); Mean Corpuscular Hgb 29.6 pg (27.0-32.0); Mean Corpuscular Volume 90.8 fL (81-99); Mean Platelet Vol. 10.4 fl (6.2-12.0); Monocyte# 0.53 X10^3/uL; Monocyte% 7.9 % (0-10); NRBC Flagged by Analyzer 0 % (0-5); Neutrophil # 4.55 X10^3/uL (2.7-7.7); Neutrophil % 68.1 % (47-70); Platelet Count 264 K/mm3 (150-450); RBC Distribution Width CV 12.4 % (11.6-14.6); RBC Distribution Width SD 41.8 fl (35.1-43.9); Red Blood Count 5.33 M/mm3 (4.2-5.4); White Blood Count 6.7 K/mm3 (4.4-11.0)
[2021-03-15 13:01] LABS: Vitamin D,25 Hydroxy 32.8 ng/mL
[2021-03-15 13:12] LABS: AST(SGOT) 20 U/L (15-37); Alanine Aminotransfer ALT/SGPT 25 U/L (13-56); CPK Total, Creatine Kinase 100 U/L (26-192); CRP < 2.90 mg/L (0.0-3.0); Creatinine, Serum 0.68 mg/dL (0.55-1.02); EST Glomerular Filtration Rate 96 mL/min (>60); Est Glom Filt Rate - Afr Amer 116 mL/min (>60)
[2021-03-16 22:42] LABS: Aldolase 4.8 U/L (3.3-10.3)
[2021-03-19 21:28] LABS: Anti-Nuclear Antibody Test Negative (.)
== END ==
PROVIDERS: PCP Family Medicine
DX: M79.18 Myalgia, other site (principal)
CPT/HCPCS: 36415; 82085; 82306; 82550; 82565; 84450; 84460; 85025; 85652; 86038; 86140; 86431

== ENCOUNTER 2021-03-26 08:16 | Outpatient (CLI) | payer BC, SELFPAY ==
[2021-03-27 15:08] LABS: Endomysial Antibody IgA Negative (Negative)
[2021-03-27 16:54] LABS: Immunoglobulin A 221 mg/dL (87-352); t-Transglutaminase IgA <2 U/mL (0-3)
== END 2021-03-26 23:59 | disposition home or self-care (01) ==
PROVIDERS: PCP Family Medicine; Visit Provider Internal Medicine Rheumatology
DX: M79.18 Myalgia, other site (principal)
CPT/HCPCS: 36415; 82784; 83516; 86255

== ENCOUNTER 2021-05-01 09:15 | Outpatient (CLI) | payer BC, SELFPAY ==
--- NOTE | 2021-05-01 09:21 | BI_ITS ---
MAMMOGRAPHY - BILATERAL DIAGNOSTIC REASON FOR EXAM: Female, 55 years old. Palpable lump at the 4 o''clock position of the right breast. PERTINENT HISTORY: Mother with breast cancer. TECHNIQUE: Digital bilateral breast isra (3D mammographic acquisition) in the CC and MLO projections. 2-D mediolateral oblique (MLO) and craniocaudad (CC) views of both breasts were obtained. CAD: Full Field Digital Mammography with Computer Added Detection was performed. COMPARISON: Comparison is made with prior study dated 04/21/2020 11/18/2018. FINDINGS: Breast Composition: The breasts are heterogeneously dense, which may obscure small masses. There are no dominant masses or suspicious calcifications. Stable small benign-appearing bilateral axillary lymph nodes. No other significant abnormalities are identified. There has been no significant change since the prior study. BI/DIAG MAMM W/CAD, BILAT IMPRESSION: Stable bilateral diagnostic mammogram. With the patient''s history of a palpable lump in the right breast, correlation with ultrasound is recommended. ASSESSMENT CATEGORY: BIRADS Category 0: Incomplete. Need additional imaging evaluation. A letter regarding these results will be sent to the patient by the facility within 30 days. Approximately 10% of breast cancers are not detected by mammography. A normal mammogram should not delay biopsy of a clinically suspicious abnormality. Electronically Signed: Arya Laura MD at 10:20 EST ,
--- NOTE | 2021-05-01 09:21 | US_ITS ---
STUDY: ULTRASOUND BREAST - RIGHT REASON FOR EXAM: Female, 55 years old. Palpable lump in the right breast. TECHNIQUE: Axial and longitudinal images of the RIGHT breast were performed with a high resolution ultrasound transducer. # OF IMAGES: 14 COMPARISON: Comparison is made with prior mammogram done earlier today. FINDINGS: RIGHT Breast: The abnormality corresponds to a 1.7 cm x 2.2 cm x 0.9 cm slightly echogenic solid nodule at the 4 o''clock position breast at 3 cm from the nipple. This may represent a lipoma. A biopsy is recommended for further evaluation. US/Breast Limited Unilateral IMPRESSION: The palpable abnormality corresponds to 1.7 cm x 2.2 cm x 0.9 cm slightly echogenic nodule at the 4 o''clock position of the breast at 3 cm from nipple. Biopsy recommended. ASSESSMENT CATEGORY: BIRADS Category 4: Suspicious - Biopsy Should Be Considered. A letter regarding these results will be sent to the patient by the facility within 30 days. Electronically Signed: Arya Laura MD at 10:24 EST ,
== END 2021-05-01 23:59 | disposition home or self-care (01) ==
PROVIDERS: PCP Family Medicine; Referring Provider Obstetrics & Gynecology; Visit Provider Obstetrics & Gynecology
DX: N63.10 Unspecified lump in the right breast, unspecified quadrant (principal); R92.2 Inconclusive mammogram
CPT/HCPCS: 76642; 77062; 77066; G0279

== ENCOUNTER → 2021-07-27 | Outpatient (CLI) | payer BC, SELFPAY ==
--- NOTE | 2021-07-27 10:39 | ECHOD_ITS ---
Reason For Study: ARRHYTHMIA, PALPITATIONS Procedure This was a 2D Doppler, Color Flow transthoracic echocardiogram. Exam performed in department. Left Ventricle Normal LV size. Left ventricular systolic function is normal. The estimated ejection fraction is 60 %. No regional wall motion abnormalities noted. Right Ventricle Normal RV size. Normal systolic function. Atria Normal left atrium. Normal right atrium. Mitral Valve Mild mitral valve prolapse. Mild mitral valve prolapse, bileaflet. Tricuspid Valve Normal tricuspid valve. Aortic Valve Trisinus/trileaflet aortic valve. Mild (1+) aortic valve insufficiency. Pulmonic Valve Normal pulmonic valve. Trivial pulmonic valve insufficiency identified. Great Vessels Normal aortic root. The pulmonary artery is normal size. Normal inferior vena cava. Pericardium/Pleural No pericardial effusion. MMode/2D Measurements & Calculations LVIDd: 5.0 cm IVSd: 0.76 cm Ao root diam: 3.1 cm LVIDs: 3.1 cm LVPWd: 0.80 cm RVDd: 3.8 cm FS: 38.2 % LAV(MOD-bp): 38.3 ml LVAd ap4: 31.3 cm2 SV(MOD-sp4): 65.2 ml LAV(MOD-bp) Indexed: 21.2 ml/m2 LVLd ap4: 7.6 cm LAV(MOD-sp2): 36.2 ml EDV(MOD-sp4): 103.1 ml LAV(MOD-sp4): 37.9 ml EDV(sp4-el): 109.0 ml LVAs ap4: 17.1 cm2 LVLs ap4: 6.7 cm ESV(MOD-sp4): 37.9 ml ESV(sp4-el): 37.3 ml EF(MOD-sp4): 63.3 % EF(sp4-el): 65.8 % SV(sp4-el): 71.7 ml LA A4 area: 16.2 cm2 LA dimension(2D): 3.0 cm RA A4 area: 15.0 cm2 Time Measurements MV dec time: 0.28 sec Doppler Measurements & Calculations MV E max patrick: 68.0 cm/sec Lat Peak E' Patrick: 11.4 cm/sec Med Peak E' Patrick: 12.4 cm/sec MV A max patrick: 81.5 cm/sec E/E' lat: 6.0 E/E' med: 5.5 MV E/A: 0.83 Ao V2 max: 133.9 cm/sec LV V1 max: 131.5 cm/sec PA V2 max: 89.0 cm/sec Ao max P.2 mmHg LV V1 max P.9 mmHg ECHO/Echo Complete Interpretation Summary Normal LV size. Left ventricular systolic function is normal. The estimated ejection fraction is 60 %. Mild mitral valve prolapse. Mild mitral valve prolapse, bileaflet Ordering Physician: Yoni Servin Referring Physician: JESÚS DUMONT Performed By: Sho Cordova RDCS
== END | disposition home or self-care (01) ==
LOC: CVS 10:38
PROVIDERS: PCP Family Medicine; Referring Provider Internal Medicine Cardiovascular Disease; Visit Provider Internal Medicine Cardiovascular Disease
DX: R00.2 Palpitations (principal); I34.1 Nonrheumatic mitral (valve) prolapse; I49.3 Ventricular premature depolarization
CPT/HCPCS: 93306

== ENCOUNTER → 2022-02-19 | Outpatient (CLI) | payer BC, SELFPAY | END | disposition home or self-care (01) | LOC: PSN 09:25 | PROVIDERS: PCP Family Medicine; Referring Provider Nurse Practitioner Gerontology; Visit Provider Nurse Practitioner Gerontology | DX: R00.2 Palpitations (principal); I34.1 Nonrheumatic mitral (valve) prolapse; I49.3 Ventricular premature depolarization | CPT/HCPCS: 93225; 93226 ==

== ENCOUNTER 2022-04-19 10:48 | Day surgery (SDC) | payer OTHER, SELFPAY ==
--- NOTE | 2022-04-16 12:20 | PCM.HP.BLA ---
History and Physical Date of Admission: 04/19/22 Pre-Op History and Physical ? HPI: The patient is a 56 year old female presenting for pre-operative visit. She is scheduled for Hysteroscopy D&C and polypectomy, for Endometrial polyp, thickened endometrium, PMB on TBD. Procedure discussed along with risks, benefits and complications. Other alternatives discussed for management. Consent form signed? Yes. ? ? PAST MEDICAL HISTORY PAST MEDICAL HISTORY Diagnosis Date ? Fibrocystic breast 03/30/2012 ? Hypokalemia 11/15/2008 ? PVC (premature ventricular contraction) ? ? ? PAST SURGICAL HISTORY PAST SURGICAL HISTORY Procedure Laterality Date ? RHINP PRIM LAT&ALAR CRTLGS&/ELVTN NASAL TI ? 1983 ? Rhinoplasty ? TONSILLECTOMY & ADENOIDECTOMY <AGE 12 ? ? ? T/A (under age 12 years) ? ? ? CURRENT MEDICATIONS Current Outpatient Medications Medication Sig Dispense Refill ? miSOPROStol (CYTOTEC) 200 mcg tablet Take two tablets PO night before procedure and two tablets morning of procedure 4 tablet 0 ? cholecalciferol, vitamin D3, (VITAMIN D3 ORAL) Take by mouth. ? ? ? MULTIVITAMIN ORAL Take by mouth. ? ? ? No current facility-administered medications for this visit. ? ? ALLERGIES: Inderal [Propranolol Hcl] and Wheat ? PERSONAL HISTORY: SOCIAL HISTORY Social History ? Tobacco Use ? Smoking status: Never ? Smokeless tobacco: Never Vaping Use ? Vaping Use: Never used Substance Use Topics ? Alcohol use: No ? ? Comment: rare ? Drug use: No ? FAMILY HISTORY: FAMILY HISTORY FAMILY HISTORY Problem Relation Age of Onset ? Heart Maternal Grandfather ? ? Breast Cancer Mother ? ? has had 1 recurrence ? Hypertension Mother ? ? Diabetes Father ? ? Hypertension Father ? ? Heart Father ? ? ? REVIEW OF SYMPTOMS: negative except as noted above PHYSICAL EXAMINATION: ? VITALS: Blood pressure 126/74, weight 158 lb (71.7 kg), last menstrual period 10/24/2020. ? GENERAL: The patient is well nourished, well hydrated in no acute distress. , The patient is oriented to time, place, and person. NECK: Full range of motion LUNGS: Clear to auscultation bilaterally. no wheezes, rhonchi or rales HEART: Regular rate and rhythm and Normal heart sounds GENITALIA: Normal external genitalia, Urethral meatus normal, Bladder nontender, normal vagina and normal vaginal tone, normal cervix, and perineum WNL ? IMPRESSION: 56yo with PMB, Enodmetrial and Endocervical polyps, thickened Endometrium ? PLAN: Hysteroscopy, D&C, polypectomy with symphion ? Pt has been counseled on risks/benefits and alternatives of surgery including but not limited to anesthesia, bleeding, infection, uterine perforation with subsequent injury to pelvic structures including bowel, bladder, ureters and vessels. Pt wishes to proceed with surgery at this time. ? Pre and post op instructions reviewed Consent signed ? I have reviewed and updated past medical and surgical history, medications and allergies Ana M Loving MD
[2022-04-19] MEDS: Lactated Ringers 1,000 ML 15 ML IV (11:00)
[2022-04-19 11:17] VITALS: BP 133/70; PULSE 84; RESP 12; TEMP 37; O2SAT 100; BMI 23.8
[2022-04-19 11:18] LABS: Hematocrit 48.4 % (37-47); Hemoglobin 15.6 g/dL (12.0-15.0); Mean Corp Hgb Conc 32.2 g/dL (32-36); Mean Corpuscular Hgb 29.1 pg (27.0-32.0); Mean Corpuscular Volume 90.3 fL (81-99); Platelet Count 235 K/mm3 (150-450); RBC Distribution Width CV 12.3 % (11.6-14.6); RBC Distribution Width SD 41.3 fl (35.1-43.9); Red Blood Count 5.36 M/mm3 (4.2-5.4); White Blood Count 5.2 K/mm3 (4.4-11.0)
--- NOTE | 2022-04-19 12:02 | DCINST_ITS ---
Discharge Instructions Procedure D&C Diet Discharge Diet: No restrictions Activity May resume sexual activity in: 1 week Dressing / Incision Call your doctor if you observe: Fever of 101 or Higher, Inability to urinate, Using more than 1 pad per hour and Uncontrolled pain Follow Up Care Please Follow Up With: Ana M Akhtar MD When: 1-2 weeks post OP if you need an appointment please call [phone] Test Results: Test results from this visit will be discussed in further detail at your follow- up appointment, if applicable. Discharge Plan Admission Attending Provider: Ana M Akhtar Primary Care Provider: Leti Seo Discharge Orders/Prescriptions Prescriptions: No Action multivitamin Tablet 1 tab PO DAILY magnesium 250 mg Tablet 250 mg PO DAILY cholecalciferol (vitamin D3) [Vitamin D3] 25 mcg (1,000 unit) Capsule 25 mcg PO DAILY coenzyme Q10 [CoQ-10] 100 mg Capsule 100 mg PO DAILY Referrals / Follow Up: Leti Seo MD [Primary Care Provider] - Disposition Disposition (needs filled in before D/C Order can be placed): Home, Self Care
--- NOTE | 2022-04-19 12:03 | OP.PCM_ITS ---
Report of Operation Date of Procedure: 04/19/22 Pre-Operative Diagnosis: PMB, Thickened EMB, EM polyp Post-Operative Diagnosis: Same Surgery/Procedure Performed:: Hysteroscopy, D&C, polypectomy Description of Surgical Findings:: endometrial polyp. both ostia seen. Surgeon: Ana M Akhtar documentation coordinator: None Type of Anesthesia: MAC Specimen's removed: endometrial curettings, endometrial polyp Estimated Blood Loss (mL): <5cc Fluids Replaced: 800 Description of Procedure: informed consent was obtained the patient was taken the operating room she was placed in supine position. She was given anesthesia. She was then placed in the [facility] where she was prepped and draped in the normal sterile fashion. At this time the weighted speculum was placed in the posterior fornix of vagina. Single-tooth tenaculum was used to gently grasp the anterior lip the cervix. At this time the uterine cavity was sounded to approximately 9 cm. Gentle dilatation was performed once adequate dilatation of the cervix was achieved the hysteroscope using normal saline as a distention medium was placed. Tubal ostia visualized, endometrial polyp seen. Symphion resecting device used to obtain endometrial curettings and to perform polypectomy. Tissue will be sent to pathology for evaluation. Tenaculum removed. Good hemostasis. Instrument, lap count correct x 2. Vaginal Sweep was negative. Procedure Start Time: 12:08 Procedure Stop Time: 12:13 Complications none Admit VTE Documentation VTE Present on Admission: Yes VTE Mechan Device Prophylaxis: SCD's VTE Pharm Prophylaxis ordered?: No Reason prophylaxis not ordered:: Procedure Not Indicated
[2022-04-19 12:30] VITALS: BP 119/78; BP 133/70; PULSE 79; RESP 16; TEMP 36.2; O2SAT 100
--- NOTE | 2022-04-19 12:30 | EMB_PTH ---
PATIENT: AYESHA CHOW LOC: [facility] U#:[id number] AGE/SX: 56/F ROOM: RE04/19/[address]: Dr. Ana M Akhtar, MDDOB: 1965 BED: DIS: 04/19/2022 SPEC #: [id number] RECD: 04/19/22 16:43 STATUS: TANG ALAN #: [id number] AMBIKA: 04/19/22 12:[address]: Ana M Akhtar DEPT: SURGICAL PATHOLOGY RECD BY: Summer Hood ENTERED: 04/22/22 12:02 SP TYPE: ENDOM BX/C GIOVANI DR: Dr. Leti Seo MD Tissues: Endometrium, NOS Procedures: Surgery Specimen Level IV HEADER OPERATION: Hysteroscopy, D & C Symphion, polypectomy PRE-OP DIAGNOSIS: PMB, thickened EMB, EM polyp TISSUE SUBMITTED: Endometrial curetting and endometrial polyp MICROSCOPIC DIAGNOSIS Endometrial curettings and polyp, D & C and polypectomy: Disordered proliferative endometrium. A few fragments of myometrium. AARON:beltran 04/23/2022 MICROSCOPIC DESCRIPTION Slides are reviewed. GROSS DESCRIPTION Received in fixative is one container labeled with the patient's name and designated endometrial curetting and endometrial polyp. The specimen consists of multiple irregular fragments of rosado soft tissue that in aggregate measure 3 x 2.5 x 0.3 cm. The entire specimen is submitted in one cassette. / AARON:beltran 04/22/2022 TC:5 CPT: 86552
[2022-04-19 12:35] VITALS: BP 120/77; BP 133/70; PULSE 75; RESP 16; O2SAT 100
[2022-04-19 12:40] VITALS: BP 123/78; BP 133/70; PULSE 75; RESP 16; O2SAT 100
[2022-04-19 12:45] VITALS: BP 121/79; BP 133/70; PULSE 76; RESP 16; TEMP 36.2; O2SAT 100
[2022-04-19 13:16] VITALS: BP 133/70
== END 2022-04-19 13:24 | disposition home or self-care (01) ==
LOC: SDC 10:50 → AC 10:52
PROVIDERS: PCP Family Medicine; Referring Provider Obstetrics & Gynecology; Visit Provider Obstetrics & Gynecology
PROC: 0UB98ZZ Excision of Uterus, Via Natural or Artificial Opening Endoscopic (ICD-10-PCS; CPT 58558; principal; 2022-04-19 12:15)
DX: N84.0 Polyp of corpus uteri (principal); R93.89 Abnormal findings on diagnostic imaging of other specified body structures; N95.0 Postmenopausal bleeding
CPT/HCPCS: 58558; 00952; 85027; 88305; J2405

== ENCOUNTER → 2022-10-04 | Outpatient (CLI) | payer OTHER, SELFPAY ==
[2022-10-04 10:19] LABS: Vitamin D,25 Hydroxy 78.7 ng/mL
[2022-10-04 10:29] LABS: AST(SGOT) 23 U/L (15-37); Alanine Aminotransfer ALT/SGPT 24 U/L (13-56); Alkaline Phosphatase 63 U/L (45-117); Anion Gap 4 (5-15); BUN 6 mg/dL (7-18); BUN/Creat Ratio 9.2 RATIO (10-20); Bilirubin, Direct 0.14 mg/dL (0.00-0.30); Calcium,Total 8.9 mg/dL (8.5-10.1); Chloride 104 mmol/L (98-107); Cholesterol 199 mg/dL (200); Creatinine, Serum 0.66 mg/dL (0.55-1.02); EST Glomerular Filtration Rate 100 mL/min (>60); Est Glom Filt Rate - Afr Amer 121 mL/min (>60); Globulin 3.5 g/dL (2.2-4.2); Glucose 97 mg/dL (74-106); High Density Lipoprotein 75 mg/dL; Potassium 3.9 mmol/L (3.5-5.1); Protein, Total 7.5 g/dL (6.4-8.2); Sodium Level 139 mmol/L (136-145); Thyroid Stim Hormone (TSH) 1.42 uIU/mL (0.358-3.74); Triglycerides 74 mg/dL; Very Low Density Lipoprotein 15 mg/dL (5-40)
== END | disposition home or self-care (01) ==
LOC: LAB 09:40
PROVIDERS: PCP Family Medicine; Referring Provider Internal Medicine Cardiovascular Disease; Visit Provider Internal Medicine Cardiovascular Disease
DX: I49.9 Cardiac arrhythmia, unspecified (principal)
CPT/HCPCS: 36415; 80048; 80061; 80076; 82306; 83735; 84443

== ENCOUNTER → 2023-01-21 | Outpatient (CLI) | payer OTHER, SELFPAY ==
[2023-01-21 15:03] LABS: Absolute Lymphocyte Count 1.74 X10^3/uL (0.83-4.51); Absolute Neutrophil Count 3.8 X10^3/uL (2.0-7.7); Basophil# 0.05 X10^3/uL; Basophil% 0.8 % (0-1); Eosinophil# 0.16 X10^3/uL; Eosinophils% 2.6 % (0-5); Hematocrit 46.6 % (37-47); Hemoglobin 14.8 g/dL (12.0-15.0); Lymphocyte # 1.74 X10^3/ul (0.83-4.51); Lymphocyte % 27.8 % (19-41); Mean Corp Hgb Conc 31.8 g/dL (32-36); Mean Corpuscular Hgb 29.8 pg (27.0-32.0); Mean Platelet Vol. 10.2 fl (6.2-12.0); Monocyte# 0.55 X10^3/uL; Monocyte% 8.8 % (0-10); NRBC Flagged by Analyzer 0 % (0-5); Neutrophil # 3.75 X10^3/uL (2.7-7.7); Neutrophil % 59.8 % (47-70); Platelet Count 226 K/mm3 (150-450); RBC Distribution Width SD 41.9 fl (35.1-43.9); Red Blood Count 4.96 M/mm3 (4.2-5.4); White Blood Count 6.3 K/mm3 (4.4-11.0)
[2023-01-21 15:37] LABS: Anion Gap 3 (5-15); BUN 10 mg/dL (7-18); BUN/Creat Ratio 15.8 RATIO (10-20); Calcium,Total 9.4 mg/dL (8.5-10.1); Chloride 104 mmol/L (98-107); Creatinine, Serum 0.63 mg/dL (0.55-1.02); EST Glomerular Filtration Rate 104 mL/min (>60); Est Glom Filt Rate - Afr Amer 126 mL/min (>60); Glucose 101 mg/dL (74-106); Magnesium 2.3 mg/dL (1.6-2.6); Sodium Level 141 mmol/L (136-145); Thyroid Stim Hormone (TSH) 1.53 uIU/mL (0.358-3.74)
== END | disposition home or self-care (01) ==
LOC: PSN 14:20
PROVIDERS: PCP Family Medicine; Referring Provider Physician Assistant Medical; Visit Provider Physician Assistant Medical
DX: I49.9 Cardiac arrhythmia, unspecified (principal)
CPT/HCPCS: 36415; 80048; 83735; 84443; 85025; 93225; 93226

== ENCOUNTER → 2023-02-07 | Outpatient (CLI) | payer OTHER, SELFPAY ==
--- NOTE | 2023-02-07 12:39 | CT_ITS ---
STUDY: CT CHEST WITHOUT CONTRAST REASON FOR EXAM: Female, 57 years old. Family history of coronary artery disease. RADIATION DOSAGE (If Supplied By Facility): CTDIvol = ( 12.19 ) mGy, DLP = ( 195.04 ) mGycm TECHNIQUE: Transaxial imaging was performed without the administration of intravenous contrast material. Individualized dose optimization techniques were used for this CT. COMPARISON: No relevant priors. FINDINGS: CHEST The lungs are normal. There is no demonstrated pleural abnormality. There are mild calcifications of the coronary arteries. Normal mediastinum. Normal hilar regions. Normal unenhanced pulmonary arteries. Normal aorta arch and descending thoracic aorta. Normal osseous structures. There is no demonstrated abnormality of the visualized upper abdomen. CT/Limited Chest CT Cardiac Only IMPRESSION: Mild degree of coronary artery calcification. Electronically Signed: Arya Laura MD at 12:54 EST ,
--- NOTE | 2023-02-09 12:45 | CA.SCORE ---
Calcium Scoring Date of Study:: 02/07/23 Indications Indications: Strong family history and premature ventricular complexes Coronary Calcium Scoring: High-resolution Computed Tomographic imaging of the chest was performed on [02/07/2023], with particular attention paid to the coronary arteries. Images from the examination were analyzed for the presence and extent of coronary artery calcification , using coronary calcium quantification software. The patient tolerated the procedure well and there were no complications. The results of the coronary calcification analysis are provided below. Findings Coronary Artery Left Main (LM): 0 Left Anterior Descending (LAD): 5 Left Circumflex (LCX): 0 Right Coronary Artery (RCA): 8 Total Agatston Score: 13 Percentile Rankinth to 75th percentile Calcium Scoring Interpretation: Different methods to categorize the overall amount of coronary plaque. Overall amount CAC SIS Visual of coronary plaque P1 Mild -100 <2 1-2 vessels with mild amount of plaque P2 Moderate 101-300 3-4 1-2 vessels with moderate amount, 3 vessels with mild amount of plaque P3 Severe 301-999 5-7 3 vessels with moderate amount, 1 vessel with severe amount of plaque P4 Extensive >1000 >8 2-3 vessels with severe amount of plaque Conclusion: Mild amount of atherosclerotic plaquing noted.
== END | disposition home or self-care (01) ==
LOC: CT 12:37
PROVIDERS: PCP Family Medicine; Referring Provider Internal Medicine Cardiovascular Disease; Visit Provider Internal Medicine Cardiovascular Disease
DX: R03.0 Elevated blood-pressure reading, without diagnosis of hypertension (principal)
CPT/HCPCS: 75571; 76380

== ENCOUNTER → 2023-02-18 | Outpatient (CLI) | payer OTHER, SELFPAY ==
--- NOTE | 2023-02-18 13:34 | ECHOD_ITS ---
Reason For Study: MURMUR Procedure This was a 2D Doppler, Color Flow transthoracic echocardiogram. Exam performed in department. Left Ventricle Normal LV size. Left ventricular systolic function is normal. The estimated ejection fraction is 60 %. No regional wall motion abnormalities noted. Right Ventricle Normal RV size. Normal systolic function. Atria Normal left atrium. Normal right atrium. Mitral Valve Mild mitral valve prolapse. Tricuspid Valve Normal tricuspid valve. Aortic Valve Trisinus/trileaflet aortic valve. Pulmonic Valve Normal pulmonic valve. Great Vessels Normal aortic root. The pulmonary artery is normal size. Normal inferior vena cava. Pericardium/Pleural No pericardial effusion. MMode/2D Measurements & Calculations LVIDd: 4.4 cm IVSd: 0.81 cm Ao root diam: 2.9 cm LVIDs: 3.1 cm LVPWd: 1.1 cm RVDd: 3.5 cm FS: 29.7 % LAV(MOD-sp4): 31.6 ml LVAd ap4: 26.9 cm2 SV(MOD-sp4): 43.5 ml LVLd ap4: 8.1 cm EDV(MOD-sp4): 75.1 ml EDV(sp4-el): 76.1 ml LVAs ap4: 15.3 cm2 LVLs ap4: 6.3 cm ESV(MOD-sp4): 31.6 ml ESV(sp4-el): 31.5 ml EF(MOD-sp4): 57.9 % EF(sp4-el): 58.5 % SV(sp4-el): 44.5 ml LA A4 area: 14.3 cm2 LA dimension(2D): 3.0 cm RA A4 area: 11.8 cm2 TAPSE: 2.8 cm Time Measurements MV dec time: 0.20 sec Doppler Measurements & Calculations MV E max patrick: 81.4 cm/sec Lat Peak E' Patrick: 10.2 cm/sec Med Peak E' Patrick: 6.2 cm/sec MV A max patrick: 66.0 cm/sec E/E' lat: 8.0 E/E' med: 13.2 MV E/A: 1.2 MV V2 max: 86.2 cm/sec Ao V2 max: 107.7 cm/sec MV max P.0 mmHg MV dec slope: 402.3 cm/sec2 Ao max P.7 mmHg MV V2 mean: 64.1 cm/sec Ao V2 mean: 76.3 cm/sec MV mean P.8 mmHg Ao mean P.7 mmHg MV V2 VTI: 20.2 cm Ao V2 VTI: 24.5 cm AV (velocity ratio): 0.88 LV V1 max: 99.9 cm/sec PA V2 max: 87.1 cm/sec LV V1 max P.0 mmHg PA V2 mean: 75.1 cm/sec LV V1 mean P.3 mmHg LV V1 mean: 70.9 cm/sec LV V1 VTI: 21.5 cm ECHO/Echo Complete Interpretation Summary Normal LV size. Left ventricular systolic function is normal. The estimated ejection fraction is 60 %. Mild mitral valve prolapse. Ordering Physician: Sylvia Durant Referring Physician: Sylvia Durant Performed By: Amparo Brewer RCS
== END | disposition home or self-care (01) ==
LOC: CVS 13:33
PROVIDERS: PCP Family Medicine; Referring Provider Physician Assistant Medical; Visit Provider Physician Assistant Medical
DX: I49.3 Ventricular premature depolarization (principal)
CPT/HCPCS: 93306

== ENCOUNTER → 2023-03-13 | Outpatient (CLI) | payer OTHER, SELFPAY ==
--- OUTSIDE RECORDS SUMMARY | 2023-03-13 08:24 | XMS RPT_ITS | CCD ---
Author Name Unknown Address [id number] [place] [address] Organization [facility] Care Team Providers Care Therapy Coordinator Name Role Phone Leti Seo Primary Care Provider NEALEXANDRU APARICIONTSINDY IBAN Referring Unavail able JOLLIFF, LETI JENNIFER Primary Care Unavailable NEYHART WILSON, IBAN Referring Unavail able NEYHART WILSON, IBAN Attending Unavail able JOLLIFF, LETI JENNIFER Primary Care Unavailable NEYHART WILSON, IBAN Referring Unavail able JOLLIFF, LETI JENNIFER Primary Care Unavailable NEYHART WILSON, IBAN Referring Unavail able LUIS MANUEL DORADO Attending Unavailable JOLLIFF, LETI JENNIFER Primary Care Unavailable NEYHART WILSON, IBAN Referring Unavail able JOLLIFF, LETI JENNIFER Primary Care Unavailable JOLLIFF, LETI JENNIFER Primary Care Unavailable KEVIN, KRISTEN Referring Unavailable JOLLIFF, LETI JENNIFER Primary Care Unavailable KEVIN, KRISTEN Referring Unavailable JOLLIFF, LETI JENNIFER Primary Care Unavailable KEVIN, KRISTEN Attending Unavailable Allergies Allergy Classification Reported Allergen(s) Allergy Type Date of Onset Reaction(s) Facility (18 sources) Propranolol; Translations: [PROPRANOLOL HCL] Drug Allergy 11-15-[address] [facility] (18 sources) Wheat preparation; Translations: [WHEAT] Drug Allergy 11-04-[address] [facility] Medications Completed/Discontinued Medications Medication Drug Class(es) Dates Sig (Normalized) Sig (Original) calcium carbonate 1500 mg / cholecalciferol 800 unt chewable tablet (2 sources) Vitamin D Start: 05-28-2014 End: 10-31-2021 take 4000 mg by mouth once daily Calcium-Cholecalci ferol, D3, 600 mg-10 mcg (400 unit) chew Take 4,000 mg by mouth once daily. 0 05/28/2014 10/31/2021 Discontinued Problems Active Problems Problem Classification Problem Date Documented Date Episodic/Chronic Abdominal pain (1 source) Female genital organ symptoms; Translations: [Pelvic and perineal pain] Episodic Benign neoplasm of uterus (3 sources) Uterine leiomyoma; Translations: [Leiomyoma of uterus, unspecified] Onset: 02-19-2023 01-31-2023 Episodic Menopausal disorders (4 sources) Postmenopausal bleeding; Translations: [Postmenopausal bleeding] Onset: 04-05-2022 Chronic Nonmalignant breast conditions (17 sources) Fibrocystic disease of breast; Translations: [Diffuse cystic mastopathy of unspecified breast] Onset: 03-30-2012 03-30-2012 Chronic Other female genital disorders (1 source) Polyp of corpus uteri; Translations: [Polyp of corpus uteri] Episodic Other female genital disorders (1 source) Endocervical polyp; Translations: [Polyp of cervix uteri] Episodic Other screening for suspected conditions (not mental disorders or infectious disease) (1 source) Endometrium thickened; Translations: [Abnormal findings on diagnostic imaging of other specified body structures] Chronic Ovarian cyst (3 sources) Cyst of ovary; Translations: [Unspecified ovarian cyst, unspecified side] Onset: 02-19-2023 01-31-2023 Episodic Past or Other Problems Problem Classification Problem Date Documented Da te Episodic/Chronic Cardiac dysrhythmias (17 sources) Palpitations; Translations: [Palpitations] Onset: 11-15-2008 11-15-2008 Episodic Fluid and electrolyte disorders (17 sources) Hypokalemia; Translations: [Hypokalemia] Onset: 11-15-2008 11-15-2008 Episodic Other female genital disorders (17 sources) Squamous metaplasia of cervix; Translations: [Dysplasia of cervix uteri, unspecified] Onset: 05-28-2014 03-12-2021 Episodic Other screening for suspected conditions (not mental disorders or infectious disease) (2 sources) Patient encounter status; Translations: [Encounter for screening mammogram for malignant neoplasm of breast] Onset: 06-27-2022 Episodic Results Test Name Value Interpretation Reference Range Facil ity Vital Signs Date Time Vital Sign Value Performing Clinician Ayla cummings 04-08-2022 13:38-0500 Body weight 71.67 kg Iban Wilson MD Work Phone: [facility] 04-08-2022 13:38-0500 Diastolic blood pressure 74 mm[Hg] Iban Wilson MD Work Phone: [facility] 04-08-2022 13:38-0500 Systolic blood pressure 126 mm[Hg] Iban Wilson MD Work Phone: [facility] 10-31-2021 15:49-0400 Body height 174 cm Ibankwesi Wilson MD Work Phone: [facility] 10-31-2021 15:49-0400 Body weight 72.58 kg Iban Wilson MD Work Phone: [facility] 10-31-2021 15:49-0400 Diastolic blood pressure 70 mm[Hg] Iban Wilson MD Work Phone: [facility] 10-31-2021 15:49-0400 Systolic blood pressure 132 mm[Hg] Iban Wilson MD Work Phone: [facility] Encounters Encounter Date Encounter Type Care Provider Facility Start: 02-19-2023 End: 02-19-2023 ambulatory IBAN WILSON OB/Gynecology Procedures Date Procedure Procedure Detail Performing Clinician Start: 02-19-2023 Us pelvic nonobstetr ic real-time image complete Ibanmartha Wilson MD Work Phone: Start: 06-27-2022 Mammography Mammograph y Coordinator Start: 04-08-2022 Urnls dip stick/tabl et rgnt auto w/o microscopy Ibanmartha Wilson MD Work Phone: Start: 04-05-2022 Us pelvic nonobstetr ic real-time image complete Iban Wilson MD Work Phone: Start: 05-01-2021 Mammography Claudia Weldon MD Work Phone: Start: 11-16-2019 Colonoscopy Claudia Weldon MD Work Phone: Start: 11-23-2011 Lipid 1996 panel - S oscar or Plasma Kristen Peter APRN.BARYTES GRINDER Work Phone: Plan of Treatment Date Care Activity Detail Author Start: 04-19-2025 HPV TESTING HPV TESTING [facility] Start: 07-27-2023 Urine microalbumin profile DTaP,Tdap,Td Vaccine (2 - Td or Tdap) [facility] Start: 06-28-[address] [facility] Start: 04-19-2023 PAP TESTING PAP TESTING [facility] Start: 01-31-2023 End: 02-01-2024 PELVIC US WHI PELVIC US [facility] Anc Imaging Routine Cyst of ovary, unspecified laterality Uterine leiomyoma, unspecified location Expected: 01/31/2023, Expires: 02/01/2024 [facility] Work Phone: Immunizations Immunization Date Immunization Notes Care Provider Pradeep pringle 03-01-2009 influenza virus vacc ine, unspecified formulation Kristen Peter APRN.BARYTES GRINDER Work Phone: [facility] Payers Date Payer Category Payer Unknown [id number] 2021 Unknown [employer] PPO [id number] 2021-Present [phone] [address] [place] [address] PPO [id number] 2021 Unknown [id number] Social History Date Type Detail Facility Start: 10-31-2021 Tobacco smoking stat us ALIS Never smoked tobacco [facility] Start: 05-04-2021 End: 07-19-2022 Alcohol intake Current non-drinker of alcohol (finding) [facility] Start: 1965 Sex Assigned At Not on file [facility] Start: 04-04-2021 End: 10-31-2021 Exposure to SARS-CoV-2 (event) Not sure [facility] Start: 10-31-2021 Tobacco use and exposure Smoke less tobacco non-user [facility] Start: 10-31-2021 History SDOH Alcohol Comment rare [facility] Start: 1965 Sex Assigned At Female [facility] Start: 07-19-2022 History of Social function [facility] Start: 07-19-2022 Tobacco use panel [facility] National Score (1-10 0), lower number is lower risk [address] [facility] Start: 05-02-2022 Gender identity Identifies as female gender (finding) [facility] Start: 05-02-2022 Sexual orientation Heterosexual (fin ding) [facility] Clinical Notes 05-21-2021 to 01-31-2023 Telephone Encounter - Iban Carlson MD - 01/31/2023 10:07 AM ESTTelephone Encounter - Tia Mobley LPN - 01/09/2023 4:30 PM EDTIban Wilson MD - 04/28/2022 8:32 AM EST Note Date & Type Note Facility 01-31-2023 Miscellaneous Notes Ultrasound ordered. documented in this encounter [facility] 01-09-2023 Miscellaneous Notes Pt left detailed message on identified voicemail. Tia Mobley LPN It's unlikely that the progesterone is the cause. She should follow up with her photographic equipment assembler or PCP. Kristen Peter APRN.JASMINE Patient called back to add to note below that she does have h/o mitral valve prolapse and PVCs too. Wanting to know if provider knows if there could be any correlation to progesterone causing that to worsen? Ally Chaudhari RN Patient started taking Progesterone daily in September. States over the last 2 weeks she has developed heart flutters. Sometimes happen frequently. Asking if the progesterone could cause this. She stopped taking 2 days ago to see if that helped. Is this OK? Patient unsure if they have improved. Possibly a little bit, but it's not like night and day. Recommend patient also contact her PCP for further evaluation. Heydi Duran RN documented in this encounter [facility] 10-10-2022 Miscellaneous Notes Order sheet filed out. Given to Rula to fax. Kristen Peter APRN.CNP Patient called stating that she has decided to try the compounded progesterone cream from [facility]. [facility] order form to provider. Patient aware that [facility] will contact patient when medication is ready documented in this encounter [facility] 07-26-2022 Miscellaneous Notes Patient needing 90 day Rx of progesterone d/t insurance. Seen in office on 07/19/22. No need to call patient back. Fatou Bonilla RN documented in this encounter [facility] 07-26-2022 Miscellaneous Notes I spoke with the pt regarding her US report. She agrees with the plan to start Prometrium daily. [facility] Kristen Peter APRN.CNP documented in this encounter [facility] 07-19-2022 Note HNO ID: [id number] Author: Kristen Peter APRN.BARYTES GRINDER Service: ? Author Type: Nurse Practitioner Type: Progress Notes Filed: 07/19/2022 2:36 PM Note Text: Heydi Reeves is a 56 year old female who presents for problem visit PMB for 3 days. HPI: light spotting on pad and with wiping Cramping/ache- started on Friday then on notice the bleeding. No recent intercourse. OB History T0 L0 SAB0 IAB0 Ectopic0 Multiple0 Live Births3 Roving Marker History LMP: 10/24/2020, Perimenopausal Age at Menarche: Age at First : Age at Menopause: Roving Marker History Comments: Sexual Activity: Yes; Male Contraception: No contraception data on record PAST MEDICAL HISTORY Diagnosis Date Fibrocystic breast 03/30/2012 Hypokalemia 11/15/2008 PVC (premature ventricular contraction) PAST SURGICAL HISTORY Procedure Laterality Date HYSTEROSCOPY BX W/WO DANDC 04/19/2022 DANDC, polypectomy RHINP PRIM LATANDALAR CRTLGSAND/ELVTN NASAL TI 03/17/1983 Rhinoplasty TONSILLECTOMY AND ADENOIDECTOMY T/A (under age 12 years) FAMILY HISTORY Problem Relation Age of Onset Heart Maternal Grandfather Breast Cancer Mother has had 1 recurrence Hypertension Mother Diabetes Father Hypertension Father Heart Father Social History Tobacco Use Smoking status: Never Smokeless tobacco: Never Vaping Use Vaping Use: Never used Substance Use Topics Alcohol use: No Comment: rare Drug use: No Current Outpatient Medications Medication Sig cholecalciferol, vitamin D3, (VITAMIN D3 ORAL) Take by mouth. MULTIVITAMIN ORAL Take by mouth. miSOPROStol (CYTOTEC) 200 mcg tablet Take two tablets PO night before procedure and two tablets morning of procedure (Patient not taking: Reported on 07/19/2022) No current facility-administered medications for this visit. Allergies As of Date: 07/19/2022 Allergen Noted Reaction INDERAL [PROPRANOLOL HCL] 11/15/2008 Itching WHEAT 11/04/2018 Hives Fully Assessed 07/19/2022 REVIEW OF SYSTEMS Abdomen: No bloating, early satiety, indigestion, or increased flatulence. No nausea, vomiting, diarrhea, or constipation. Bladder: No dysuria, gross hematuria, urinary frequency, urinary urgency, or incontinence. Expanded ROS: N/A Allergies and current medication updated:Yes EXAM: BP 138/80 Wt 150 lb (68.0kg) LMP 10/24/2020 GENERAL: pleasant, female in no apparent distress HEENT: Normocephalic, atraumatic, mucus membranes moist, and no lesions CHEST: Normal inspiratory effort PELVIC: external genitalia normal, normal Bartholin's glands, urethra, Huntland's glands, no vulvar lesions, no cervical lesions, physiologic discharge present, normal appearing perineal body and perianal region, light brown discharge noted BIMANUAL: uterus normal size, shape and consistency, no adnexal masses, non-tender, and no cervical motion tenderness NEURO: alert and oriented x3,exam grossly non-focal EXTREMITIES: normal ASSESSMENT/PLAN: 1. PMB (postmenopausal bleeding) - ICD9: 627.1, ICD10: N95.0 - FSH BLD - ESTRADIOL-17B BLD - TSH BLD - IRON + TIBC - PELVIC US WHI Will notify pt of results and follow up care needed Kristen Peter APRN.BARYTES GRINDER Medical Decision Making: Problems: Low: Acute, uncomplicated illness or injury Data: Unique test(s) ordered: 3+ Risk: Low: Low risk from testing/treatment Medical Decision Making Level: 3 - Low [facility] 07-18-2022 Miscellaneous Notes Spoke with pt and she wanted to be seen d/t going out of town on Friday. Pt given appointment with RM. Tia Mobley LPN Just monitor for now. If bleeding is persistent or heavier I need to know about it. Thank you. D&C pathology from March was benign. Patient had PMB in March, then had hysteroscopy, D&C, polypectomy on 04/19/22. Calling today because last night she had cramping/discomfort like she was going to start a menses. This morning then she noticed a very small amount of pink on her pad too. Asking if she needs to do anything or just monitor for now? Ally Chaudhari RN documented in this encounter [facility] 06-27-2022 Miscellaneous Notes June 28, 2022 PID: [id number] Heydi Reeves [address] [place] [address] Dear Ms. Reeves, We are pleased to inform you that the results of your recent breast imaging exam on 06/27/2022 are normal. Early detection of cancer is very important. We also understand recommendations regarding breast cancer screening are controversial. Please discuss with your primary care provider which strategy is best for you and whether a mammogram is right for you. Your imaging studies and report will be kept on file at [facility] as part of your permanent medical record and are available for your continuing care. Thank you for allowing us to help in meeting your health care needs. Sincerely, Dr. Calloway Interpreting Radiologist [facility] (Normal over 40) documented in this encounter [facility] 06-27-2022 Note HNO ID: [id number] Author: RT Lilli(R) Service: ? Author Type: Technologist Type: Progress Notes Filed: 06/27/2022 1:08 PM Note Text: Radiology Service Progress Note PATIENT NAME: Heydi Reeves DATE OF SERVICE: June 27, 2022 TIME: 1:08 PM PATIENT IDENTITY VERIFICATION COMPLETED USING TWO (2) IDENTIFIERS: Name and Date of confirmed by patient verbally. FALL SCREENING: Has the patient had 2 falls in the last year or 1 fall with injury or currently using an Ambulatory Assistive Device (Walker, Cane, Wheelchair, Crutches, etc.)? No PATIENT GENDER DATA: Female. status: : No status: NO. PATIENT RELEVANT IMPLANT DATA REVIEWED: Not Applicable RADIOLOGY DEPARTMENT: Mammography PERIPHERAL IV DATA: Not applicable SIGNED BY: RT Lilli(R) June 27, 2022 1:08 PM [facility] 05-10-2022 Miscellaneous Notes Pt contacted to follow up with PCP or OBGYN for 1 year f/u mamogram. Pt received recall letter and scheduled with General Surgery.Ana Valverde RN documented in this encounter [facility] 05-07-2022 Miscellaneous Notes Patient notified. Heydi Duran RN Yes, this can be normal. So long as not heavy vaginal bleeding. Patient had a hysteroscopy, D&C, and polypectomy on 04/19/22. Calling today to report that she is still having bright red spotting. Asking if this is normal. Aware DM will return tomorrow. Heydi Duran RN documented in this encounter [facility] 04-28-2022 Note HNO ID: [id number] Author: Iban Wilson MD Service: ? Author Type: Physician Type: Progress Notes Filed: 04/28/2022 8:34 AM Note Text: pathology is benign from hysteroscopy, DANDC, polypectomy. [facility] 04-28-2022 History of Presen t illness Narrative pathology is benign from hysteroscopy, D&C, polypectomy. External pathology received. Please review link below. Scan on 04/24/2022 9:50 AM by External Provider: Pathology documented in this encounter [facility] 04-24-2022 Note HNO ID: [id number] Author: Liyah Brannon LPN Service: ? Author Type: ? Type: Progress Notes Filed: 04/28/2022 8:34 AM Note Text: External pathology received. Please review link below. Scan on 04/24/2022 9:50 AM by External Provider: Pathology [facility] 04-08-2022 Note HNO ID: [id number] Author: Iban Wilson MD Service: ? Author Type: Physician Type: Progress Notes Filed: 04/08/2022 2:24 PM Note Text: Heydi Reeves presents for hysteroscopy. Indication: Postmenopausal bleeding, Increased endometrial thickness, and Endometrial polyp. Age: [age] year old LMP: Patient's last menstrual period was 10/24/2020. Contraception: test: n/a VS: BP 126/74 Wt 158 lb (71.7kg) LMP 10/24/2020 UNIVERSAL PROTOCOL / SAFETY CHECKLIST Procedure to be Performed: Endosee and EMB Sign In: A Moment of CARE was completed. Personnel directly involved with the procedure wore the appropriate PPE (Personal Protective Equipment). Patient/Surrogate Stated/Verified: PATIENT VERIFIED(optional for EMERGENT procedures): Patient name, Date of , Relevant allergies, and The intended procedure Time Out Communication: Intended patient and procedure match the source documents. Consent documented and matches the intended procedure. Sign Out: SIGN OUT (optional for EMERGENT procedures): All specimen containers correctly labeled. Iban Akhtar MD OBJECTIVE: two small endocerival polyps- Cervix cleaned with betadine. A single tooth tenaculum was used to grasp cervix. Under sterile conditions, using 60 mL normal saline as distention, ENDOSEE hysteroscopy performed without incident. Endometrial lining is atrophic. Endometrial polyp noted on anterior aspect. Endometrial biopsy performed. PROCEDURE SUMMARY: Patient tolerated procedure well. ASSESMENT: Postmenopausal bleeding, Increased endometrial thickness, and Endometrial polyp with polyp lesions on hysteroscopy. PLAN: Hysteroscopic polypectomy, DANDC in the OR. Will need repeat Ultrasound in 1 yr to follow up simple ovarian cyst. Pre op completed today. Iban Akhtar MD [facility] 04-08-2022 Miscellaneous Notes Addended by: IBAN WILSON on: 04/08/2022 02:51 PM Modules accepted: Orders Addended by: JEFFRY NASH MA on: 04/08/2022 02:49 PM Modules accepted: Orders documented in this encounter [facility] 04-08-2022 History and physical note Pre-Op History and Physical HPI: The patient is a 56 year old female presenting for pre-operative visit. She is scheduled for Hysteroscopy D&C and polypectomy, for Endometrial polyp, thickened endometrium, PMB on TBD. Procedure discussed along with risks, benefits and complications. Other alternatives discussed for management. Consent form signed? Yes. PAST MEDICAL HISTORY Diagnosis Date Fibrocystic breast 03/30/2012 Hypokalemia 11/15/2008 PVC (premature ventricular contraction) PAST SURGICAL HISTORY Procedure Laterality Date RHINP PRIM LAT&ALAR CRTLGS&/ELVTN NASAL TI 1983 Rhinoplasty TONSILLECTOMY & ADENOIDECTOMY <AGE 12 T/A (under age 12 years) Current Outpatient Medications Medication Sig Dispense Refill miSOPROStol (CYTOTEC) 200 mcg tablet Take two tablets PO night before procedure and two tablets morning of procedure 4 tablet 0 cholecalciferol, vitamin D3, (VITAMIN D3 ORAL) Take by mouth. MULTIVITAMIN ORAL Take by mouth. No current facility-administered medications for this visit. ALLERGIES: Inderal [Propranolol Hcl] and Wheat PERSONAL HISTORY: Social History Tobacco Use Smoking status: Never Smokeless tobacco: Never Vaping Use Vaping Use: Never used Substance Use Topics Alcohol use: No Comment: rare Drug use: No FAMILY HISTORY: FAMILY HISTORY Problem Relation Age of Onset Heart Maternal Grandfather Breast Cancer Mother has had 1 recurrence Hypertension Mother Diabetes Father Hypertension Father Heart Father REVIEW OF SYMPTOMS: negative except as noted above PHYSICAL EXAMINATION: VITALS: Blood pressure 126/74, weight 158 lb (71.7 kg), last menstrual period 10/24/2020. GENERAL: The patient is well nourished, well hydrated in no acute distress. , The patient is oriented to time, place, and person. NECK: Full range of motion LUNGS: Clear to auscultation bilaterally. no wheezes, rhonchi or rales HEART: Regular rate and rhythm and Normal heart sounds GENITALIA: Normal external genitalia, Urethral meatus normal, Bladder nontender, normal vagina and normal vaginal tone, normal cervix, and perineum WNL IMPRESSION: 56yo with PMB, Enodmetrial and Endocervical polyps, thickened Endometrium PLAN: Hysteroscopy, D&C, polypectomy with symphion Pt has been counseled on risks/benefits and alternatives of surgery including but not limited to anesthesia, bleeding, infection, uterine perforation with subsequent injury to pelvic structures including bowel, bladder, ureters and vessels. Pt wishes to proceed with surgery at this time. Pre and post op instructions reviewed Consent signed I have reviewed and updated past medical and surgical history, medications and allergies Iban Wilson MD documented in this encounter [facility] 04-08-2022 Instructions Jeffry Nash Ma - 04/08/2022 1:33 PM EST YOUR RECOVERY After your biopsy you may have: Vaginal bleeding (less than a normal menstrual period) Mild cramping Do NOT put anything in the vagina for 1 week after your endometrial biopsy. This includes: tampons douches and refraining from having sexual intercourse If you have any discomfort, you may take an over the counter pain medication (motrin, advil, ibuprofen, tylenol, etc). If this does not relieve your discomfort, contact the office. It is okay to wear a sanitary pad until the discharge and spotting stops. RISKS Although problems seldom occur with endometrial biopsies, there can be some complications. You may feel faint during and shortly after the procedure as well as have some bleeding after the procedure. There is also a risk of infection after the procedure. These complications are rare and can be easily treated. You should contact you doctor is you have any of the following: Heavy bleeding (more than your normal period) Bleeding with clots Severe abdominal pain Fever (more than 100.4F) Foul smelling vaginal discharge RESULTS We will have the results of your biopsy in 1-2 weeks. If you do not hear the results of your biopsy after 2 weeks, please contact the office for the results. If you have any additional questions or concerns please do not hesitate to contact the office. documented in this encounter [facility] 04-08-2022 History of Presen t illness Narrative Heydi Reeves presents for hysteroscopy. Indication: Postmenopausal bleeding, Increased endometrial thickness, and Endometrial polyp. Age: [age] year old LMP: Patient's last menstrual period was 10/24/2020. Contraception: test: n/a VS: BP 126/74 Wt 158 lb (71.7kg) LMP 10/24/2020 UNIVERSAL PROTOCOL / SAFETY CHECKLIST Procedure to be Performed: Endosee and EMB Sign In: A Moment of CARE was completed. Personnel directly involved with the procedure wore the appropriate PPE (Personal Protective Equipment). Patient/Surrogate Stated/Verified: PATIENT VERIFIED(optional for EMERGENT procedures): Patient name, Date of , Relevant allergies, and The intended procedure Time Out Communication: Intended patient and procedure match the source documents. Consent documented and matches the intended procedure. Sign Out: SIGN OUT (optional for EMERGENT procedures): All specimen containers correctly labeled. Iban Akhtar MD OBJECTIVE: two small endocerival polyps- Cervix cleaned with betadine. A single tooth tenaculum was used to grasp cervix. Under sterile conditions, using 60 mL normal saline as distention, ENDOSEE hysteroscopy performed without incident. Endometrial lining is atrophic. Endometrial polyp noted on anterior aspect. Endometrial biopsy performed. PROCEDURE SUMMARY: Patient tolerated procedure well. ASSESMENT: Postmenopausal bleeding, Increased endometrial thickness, and Endometrial polyp with polyp lesions on hysteroscopy. PLAN: Hysteroscopic polypectomy, D&C in the OR. Will need repeat Ultrasound in 1 yr to follow up simple ovarian cyst. Pre op completed today. Iban Akhtar MD documented in this encounter [facility] 04-08-2022 Miscellaneous Notes Patient called and would like to be seen today. Appointment rescheduled. Fatou Bonilla RN See if patient wants to come at 1:40 today. Patient notified. Endosee and EMB scheduled for 04/15/22. Patient also wanted to update provider too of pelvic pressure she has been having. States it is mid lower pelvic area she has been having constant more severe pressure feeling. She didn't have it a week ago that she remembers, but it progressively gotten worse over the weekend. She also has a h/o diverticulitis and doesn't know if she should contact her PCP too for this pain. She requested note to be sent to DM to see if there is any sooner time she can be seen instead of the . Please advise. Ally Chaudhari RN Iban Wilson MD 04/08/2022 7:51 AM EST Please notify patient that her EM lining is thickened and likely contains a polyp. I would recommend in office endosee to confirm polyp and EMB. If ok with plan please assist in scheduling. I will place order. I will also order cytotec. documented in this encounter [facility] 10-31-2021 History of Presen t illness Narrative Heydi is a 55 year old who presents for an annual gynecologic exam without complaints. Retiring 11/23/21. Went to [place]. 2 sons in [place] and other in [place]. Postmenopausal: Yes since age 54 HRT use: No. Last Pap: 04/27/2020 normal HPV: 04/21/2020 negative History of abnormal pap: Yes ascus but negative hpv Last mammogram: 2021 abnormal, biopsy was benign History of abnormal mammogram: Yes Sexually active: Yes History of STDS: None Patient concerns for STD exposure: No. Pain with intercourse: No Postcoital bleeding: No Hot flashes: occasional Night sweats: No Vaginal dryness: No OB History T0 L0 SAB0 IAB0 Ectopic0 Multiple0 Live Births3 Roving Marker History LMP: 10/24/2020, Perimenopausal Age at Menarche: Age at First : Age at Menopause: Roving Marker History Comments: Sexual Activity: Yes; Male Contraception: No contraception data on record PAST MEDICAL HISTORY Diagnosis Date Fibrocystic breast 03/30/2012 Hypokalemia 11/15/2008 PVC (premature ventricular contraction) PAST SURGICAL HISTORY Procedure Laterality Date RHINP PRIM LAT&ALAR CRTLGS&/ELVTN NASAL TI 1984 Rhinoplasty TONSILLECTOMY & ADENOIDECTOMY <AGE 14 T/A (under age 14 years) FAMILY HISTORY Problem Relation Age of Onset Heart Maternal Grandfather Breast Cancer Mother has had 1 recurrence Hypertension Mother Diabetes Father Hypertension Father Heart Father SOCIAL HISTORY Social History Tobacco Use Smoking status: Never Smokeless tobacco: Never Vaping Use Vaping Use: Never used Substance Use Topics Alcohol use: No Comment: rare Drug use: No REVIEW OF SYSTEMS Abdomen: No abdominal pain, nausea, vomiting, diarrhea, or constipation. No bloating, early satiety, indigestion, or increased flatulence. Bladder: No dysuria, gross hematuria, urinary frequency, urinary urgency, or incontinence Breast: No breast lumps, nipple d/c, overlying skin changes, redness or skin retraction- stable mass on right Allergies and current medication updated:Yes EXAM: BP 132/70 Ht 5' 8.504 (1.74m) Wt 160 lb (72.6kg) LMP 10/24/2020 BMI 23.97 kg/(m^2). GENERAL: pleasant, female in no apparent distress HEENT: Normocephalic, atraumatic, mucus membranes moist, and no lesions NECK: Supple, full range of motion, no adenopathy, and thyroid normal DERMATOLOGY: Normal, without lesions, non-icteric, and non-hirsute BREAST: soft, non-tender, symmetric, no dominant mass, normal nipple-areolar complex, no lymphadenopathy, and no nipple discharge ABDOMEN: soft, non-tender, and no masses PELVIC: external genitalia normal, normal Bartholin's glands, urethra, Huntland's glands, no vulvar lesions, no cervical lesions, good vaginal support, physiologic discharge present, normal appearing perineal body and perianal region BIMANUAL: uterus top normal size, shape and consistency, no adnexal masses, and non-tender RECTOVAGINAL: deferred. NEURO: alert and oriented x3,exam grossly non-focal EXTREMITIES: normal ASSESSMENT/PLAN: 1) Health maintenance: Pap/HPV up to date. Mammogram ordered Mammogram up to date Nutrition, exercise and routine health maintenance exams reviewed. Calcium/Vitamin D supplementation information provided. Colon cancer screening: up to date with screening 2) Follow up one year or sooner as needed 3) will transition mammogram to [facility]- order placed for next year. Iban Akhtar MD Rn Postpartum offered: Patient declines. documented in this encounter [facility] 05-21-2021 Miscellaneous Notes This patient was scheduled for a follow up appointment on 05/11/2021, to review right breast needle core biopsy results, however the patient did not show. As of today's date, she has not rescheduled. Would you like to call her with the results or should we attempt to reschedule her? Please advise. Rosario Ashby RN documented in this encounter [facility] Diagnosis PMB (postmenopausal bleeding)- Primary Postmenopausal bleeding [facility] Diagnosis PMB (postmenopausal bleeding)- Primary Postmenopausal bleeding Endometrial polyp Polyp of corpus uteri Endocervical polyp Mucous polyp of cervix Thickened endometrium Nonspecific (abnormal) findings on radiological and other examination of genitourinary organs Pelvic pressure in female Other specified symptom associated with female genital organs [facility] Diagnosis PMB (postmenopausal bleeding) Postmenopausal bleeding [facility] Diagnosis Cyst of ovary, unspecified laterality- Primary Uterine leiomyoma, unspecified location [facility] Diagnosis Cyst of ovary, unspecified laterality Uterine leiomyoma, unspecified location documented in this encounter [facility] for referral (narrative)* Diagnostic Procedure Only (Routine) - Pending Review Specialty Diagnoses / Procedures Referred By Rubi mesa Referred To Contact [facility] Diagnoses Encounter for screening mammogram for malignant neoplasm of breast Procedures TIA SCREENING W ALEX SCREENING DIGITAL BREAST TOMOSYNTHESIS BI SCREENING MAMMOGRAPHY BI 2-VIEW BREAST INC CAD Iban Carlson MD [address] [place] [address] [facility] [address] [place] [address] Referral ID Status Reason Start Date Expiration Date Visits Requested Visits Authorized [id number] Pending Review Auto-Generat ed Referral 10/31/2021 11/30/2022 1 1 [facility] for referral (narrative)* Outpatient Procedure (Routine) - Pending Review Specialty Diagnoses / Procedures Referred By Rubi mesa Referred To Contact [facility] Diagnoses Endometrial polyp Endocervical polyp PMB (postmenopausal bleeding) Thickened endometrium Procedures ENDOMETRIAL BIOPSY ENDOMETRIAL BX W/WO ENDOCERVIX BX W/O DILAT SPX Iban Carlson MD [address] [place] [address] [facility] [address] [place] [address] Referral ID Status Reason Start Date Expiration Date Visits Requested Visits Authorized [id number] Pending Review Auto-Generat ed Referral 04/08/2022 04/08/2023 1 1 [facility] for referral (narrative)* Diagnostic Procedure Only (Routine) - Pending Review Specialty Diagnoses / Procedures Referred By Rubi mesa Referred To Contact [facility] Diagnoses Cyst of ovary, unspecified laterality Uterine leiomyoma, unspecified location Procedures PELVIC US WHI US PELVIC NONOBSTETRIC REAL-TIME IMAGE COMPLETE Iban Carlson MD [address] [place] [address] [facility] [address] [place] [id number] Referral ID Status Reason Start Date Expiration Date Visits Requested Visits Authorized [id number] Pending Review Auto-Generat ed Referral 3 01/31/2024 1 1 [facility] Diagnostic Procedure Only (Routine) - Closed Specialty Diagnoses / Procedures Referred By Rubi mesa Referred To Contact [facility] Diagnoses PMB (postmenopausal bleeding) Procedures PELVIC US I US PELVIC NONOBSTETRIC REAL-TIME IMAGE COMPLETE Iban Carlson MD [address] [place] [address] [facility] [address] [place] [address] Referral ID Status Reason Start Date Expiration Date V isits Requested Visits Authorized [id number] Closed Auto-Generate d Referral 04/01/2022 04/01/[address] [facility] Summary Purpose Family History No Family History Records Found Advance Directives No Advanced Directives Records Found Additional Source Comments Source Comments (unrecognize d section and content) In the event this informatio n is protected by the Federal Confidentiality of Alcohol and Drug Abuse Patient Records regulations: The Federal rules restrict any use of the information to criminally investigate or prosecute any alcohol or drug abuse patient.[facility] event this information is protected by the Federal Confidentiality of Alcohol and Drug Abuse Patient Records regulations: The Federal rules restrict any use of the information to criminally investigate or prosecute any alcohol or drug abuse patient.[facility] event this information is protected by the Federal Confidentiality of Alcohol and Drug Abuse Patient Records regulations: The Federal rules restrict any use of the information to criminally investigate or prosecute any alcohol or drug abuse patient.[facility] event this information is protected by the Federal Confidentiality of Alcohol and Drug Abuse Patient Records regulations: The Federal rules restrict any use of the information to criminally investigate or prosecute any alcohol or drug abuse patient.[facility] event this information is protected by the Federal Confidentiality of Alcohol and Drug Abuse Patient Records regulations: The Federal rules restrict any use of the information to criminally investigate or prosecute any alcohol or drug abuse patient.[facility] event this information is protected by the Federal Confidentiality of Alcohol and Drug Abuse Patient Records regulations: The Federal rules restrict any use of the information to criminally investigate or prosecute any alcohol or drug abuse patient.[facility] event this information is protected by the Federal Confidentiality of Alcohol and Drug Abuse Patient Records regulations: The Federal rules restrict any use of the information to criminally investigate or prosecute any alcohol or drug abuse patient.[facility] event this information is protected by the Federal Confidentiality of Alcohol and Drug Abuse Patient Records regulations: The Federal rules restrict any use of the information to criminally investigate or prosecute any alcohol or drug abuse patient.[facility] event this information is protected by the Federal Confidentiality of Alcohol and Drug Abuse Patient Records regulations: The Federal rules restrict any use of the information to criminally investigate or prosecute any alcohol or drug abuse patient.[facility] event this information is protected by the Federal Confidentiality of Alcohol and Drug Abuse Patient Records regulations: The Federal rules restrict any use of the information to criminally investigate or prosecute any alcohol or drug abuse patient.[facility] event this information is protected by the Federal Confidentiality of Alcohol and Drug Abuse Patient Records regulations: The Federal rules restrict any use of the information to criminally investigate or prosecute any alcohol or drug abuse patient.[facility] event this information is protected by the Federal Confidentiality of Alcohol and Drug Abuse Patient Records regulations: The Federal rules restrict any use of the information to criminally investigate or prosecute any alcohol or drug abuse patient.[facility] event this information is protected by the Federal Confidentiality of Alcohol and Drug Abuse Patient Records regulations: The Federal rules restrict any use of the information to criminally investigate or prosecute any alcohol or drug abuse patient.[facility] event this information is protected by the Federal Confidentiality of Alcohol and Drug Abuse Patient Records regulations: The Federal rules restrict any use of the information to criminally investigate or prosecute any alcohol or drug abuse patient.[facility] the event this information is protected by the Federal Confidentiality of Alcohol and Drug Abuse Patient Records regulations: The Federal rules restrict any use of the information to criminally investigate or prosecute any alcohol or drug abuse patient.[facility] the event this information is protected by the Federal Confidentiality of Alcohol and Drug Abuse Patient Records regulations: The Federal rules restrict any use of the information to criminally investigate or prosecute any alcohol or drug abuse patient.[facility] the event this information is protected by the Federal Confidentiality of Alcohol and Drug Abuse Patient Records regulations: The Federal rules restrict any use of the information to criminally investigate or prosecute any alcohol or drug abuse patient.[facility] Reason for Visit (unrecogniz ed section and content) Reason Onset Date Comments Yearly Exam 10/31/2021 Reason Comments DUB Reason Comments Patient Update Results Reason Comments Endometrial Biopsy Specialty Diagnoses / Procedures Referred By Contac t Referred To Contact [facility] Diagnoses PMB (postmenopausal bleeding) Thickened endometrium Endometrial polyp Procedures ENDOMETRIAL BIOPSY ENDOMETRIAL BX W/WO ENDOCERVIX BX W/O DILAT SPX Iban Carlson MD [address] [place] [address] [id number] [place] [address] Referral ID Status Reason Start Date Expiration Date V isits Requested Visits Authorized [id number] Closed Auto-Generate d Referral 04/08/2022 04/08/2023 1 1 Reason Comments external lab Surgical pathology Reason Comments Patient Question Reason Comments Appointment Reason Comments Patient Update Reason Comments Results Reason Onset Date Comments Refill Request 07/26/2022 Reason Comments Medication Request Reason Comments Medication Question Reason Comments [facility] Ultrasound Specialty Diagnoses / Procedures Referred By Contac t Referred To Contact [facility] Diagnoses Cyst of ovary, unspecified laterality Uterine leiomyoma, unspecified location Procedures PELVIC US WHI US PELVIC NONOBSTETRIC REAL-TIME IMAGE COMPLETE Iban Carlson MD [address] [place] [address] [id number] [place] [address] Referral ID Status Reason Start Date Expiration Date V isits Requested Visits Authorized [id number] Closed Auto-Generate d Referral 01/31/2023 01/31/2024 1 1 Care Teams (unrecognized sec tion and content) Therapy Coordinator Relationship Specialty Start Date End Date Leti Seo [address] [place] [address] PCP - General Family Practice 10/07/18 Therapy Coordinator Relationship Specialty Start Date End Date Leti Seo [address] [place] [address] PCP - General Family Medicine 10/07/18 Therapy Coordinator Relationship Specialty Start Date End Date Leti Seo [address] [place] [address] PCP - General Family Medicine 10/07/18 Therapy Coordinator Relationship Specialty Start Date End Date Leti Seo [address] [place] [address] PCP - General Family Medicine 10/07/18 Therapy Coordinator Relationship Specialty Start Date End Date Leti Seo [address] [place] [address] PCP - General Family Medicine 10/07/18 Therapy Coordinator Relationship Specialty Start Date End Date Leti Seo [address] [place] [address] PCP - General Family Medicine 10/07/18 Therapy Coordinator Relationship Specialty Start Date End Date Leti Seo [address] [place] [address] PCP - General Family Medicine 10/07/18 Therapy Coordinator Relationship Specialty Start Date End Date Leti Seo [address] [place] [address] PCP - General Family Medicine 10/07/18 Therapy Coordinator Relationship Specialty Start Date End Date Leti Seo [address] [place] [address] PCP - General Family Medicine 10/07/18 Therapy Coordinator Relationship Specialty Start Date End Date Rayray Leti Jennifer [address] [place] [address] PCP - General Family Medicine 10/07/18 Therapy Coordinator Relationship Specialty Start Date End Date Leti Seo [address] [facility] [address] [place] [address] PCP - General Family Medicine 10/07/18 Therapy Coordinator Relationship Specialty Start Date End Date Leti Seo [address] [facility] [address] [place], [place] [id number] PCP - General Family Medicine 10/07/18 Therapy Coordinator Relationship Specialty Start Date End Date Leti Seo [address] [facility] [address] [place], [place] [id number] PCP - General Family Medicine 10/07/18 INFORMATION SOURCE (unrecogn ized section and content) FOR RECORDS PERTAINING TO PATIENTS WHO ARE OR HAVE BEEN ENROLLED IN A CHEMICAL DEPENDENCY/SUBSTANCEABUSE PROGRAM, SOME INFORMATION MAY BE OMITTED. This clinical summary was aggregated from multiple sources. Caution should be exercised in using it in the provision of clinical care. This summary normalizes information from multiple sources, and as a consequence, information in this document may materially change the coding, format and clinical context of patient data. In addition, data may be omitted in some cases. CLINICAL DECISIONS SHOULD BE BASED ON THE PRIMARY CLINICAL RECORDS. [facility]. provides no warranty or guarantee of the accuracy or completeness of information in this document.
== END | disposition home or self-care (01) ==
LOC: PSN 08:21
PROVIDERS: PCP Family Medicine; Referring Provider Physician Assistant Medical; Visit Provider Physician Assistant Medical
DX: I49.3 Ventricular premature depolarization (principal)
CPT/HCPCS: 93225; 93226

== ENCOUNTER 2024-12-10 12:39 | Outpatient (CLI) | payer OTHER, SELFPAY ==
[2024-12-10 16:22] LABS: Magnesium 2.1 mg/dL (1.5-2.2)
[2024-12-16 16:09] LABS: Vitamin B1, Thiamine 169.5 nmol/L (66.5-200.0)
== END 2024-12-10 23:59 | disposition home or self-care (01) ==
LOC: MTLAB 12:41
PROVIDERS: PCP Family Medicine; Referring Provider Family Medicine; Visit Provider Family Medicine
DX: E83.42 Hypomagnesemia (principal); G62.9 Polyneuropathy, unspecified
CPT/HCPCS: 36415; 83735; 84425

== ENCOUNTER → 2025-02-02 | Outpatient (CLI) | payer OTHER, SELFPAY ==
[2025-02-02 17:47] LABS: Hematocrit 46.5 % (37-47); Hemoglobin 15.5 g/dL (12.0-15.0); Immature Granulocytes Count 0.010 X10^3/uL (0.0-0.0); Mean Corp Hgb Conc 33.3 g/dL (32-36); Mean Corpuscular Volume 89.3 fL (81-99); Mean Platelet Vol. 10.5 fl (6.2-12.0); NRBC Flagged by Analyzer 0 % (0-5); Platelet Count 236 K/mm3 (150-450); RBC Distribution Width CV 11.9 % (11.6-14.6); RBC Distribution Width SD 39.2 fl (35.1-43.9); Red Blood Count 5.21 M/mm3 (4.2-5.4); White Blood Count 6.9 K/mm3 (4.4-11.0)
[2025-02-02 18:26] LABS: AST(SGOT) 18 U/L (<=31); Alanine Aminotransfer ALT/SGPT 16 U/L (<=34); Albumin, Serum 4.9 g/dL (3.5-5.0); Alkaline Phosphatase 74 U/L (35-104); Anion Gap 11 (5-15); BUN 8 mg/dL (4-19); BUN/Creat Ratio 14.3 RATIO (10-20); Calcium,Total 9.9 mg/dL (7.6-11.0); Carbon Dioxide 26.8 mmol/L (21.0-32.0); Chloride 101 mmol/L (98-108); Globulin 3.1 g/dL (2.2-4.2); Glucose 105 mg/dL (70-99); Iron 93 ug/dL (50-170); Iron Binding Capacity,Total 328 ug/dL (250-450); Iron Binding Capacity,Unsat 235 ug/dL (228-428); Potassium 4.0 mmol/L (3.3-5.1)
[2025-02-02 18:32] LABS: FOLATES,SERUM (FOLIC ACID) 15.20 ng/mL (4.60-34.80)
[2025-02-04 17:08] LABS: Immunoglobulin A 220 mg/dL (87-352)
== END | disposition home or self-care (01) ==
LOC: MTLAB 14:30
PROVIDERS: PCP Family Medicine; Referring Provider Family Medicine; Visit Provider Family Medicine
DX: D50.9 Iron deficiency anemia, unspecified (principal); R76.89 Other specified abnormal immunological findings in serum; R68.89 Other general symptoms and signs
CPT/HCPCS: 80053; 82746; 82784; 83036; 83516; 83540; 83550; 84443; 85025; 85652; 86200; 86255